=== PATIENT | female | born 1940 | race Caucasian/White ===

== ENCOUNTER 2022-08-01 13:43 | Outpatient (REF) | payer OTHER, SELFPAY ==
[2022-08-01 15:18] LABS: Bilirubin Negative (Negative); Blood Negative (Negative); Clarity Sl Cloudy (Clear); Glucose Negative (Negative); Ketones Negative (Negative); Leukocyte Esterase Trace (Negative); Nitrite Negative (Negative); Specific Gravity 1.015 (1.005-1.025); Urobilinogen 0.2 EU/dL (Up TO 0.2); pH 6.5 (5-8)
[2022-08-01 15:26] LABS: Bacteria Few HPF (Negative); C & S Indicated? No; Crystals Few Amorphous HPF (Negative); Epithelial Cells Rare HPF (Negative); Mucus Trace (Negative); Other Cells Rare Renal (Negative); RBC Negative HPF (0-2)
== END 2022-08-01 13:44 | disposition home or self-care (01) ==
LOC: LBN 13:43
PROVIDERS: PCP Family Medicine; Visit Provider Nurse Practitioner Family
DX: R30.9 Painful micturition, unspecified (principal)
CPT/HCPCS: 81003; 81015

== ENCOUNTER 2022-10-27 14:07 | Outpatient (REF) | payer OTHER, SELFPAY ==
[2022-10-27 14:34] LABS: Abs Immature Grans 0.02 10^3/uL (0.0-0.06); Absolute Basophil Count 0.03 10^3/uL (0.0-0.2); Absolute Eosinophil Count 0.25 10^3/uL (0.0-0.7); Absolute Lymphocyte Count 1.18 10^3/uL (1.2-3.4); Absolute Monocyte Count 0.61 10^3/uL (0.1-0.8); Absolute Neutrophil Count 4.81 10^3/uL (1.2-6.7); Basophils % 0.4; Eosinophils % 3.6; HCT 37.8 % (36.0-46.0); HGB 12.2 g/dL (11.2-15.7); Immature Grans % 0.3; Lymphocytes % 17.1; MCH 31.9 pg (27.0-33.0); MCHC 32.3 % (32.0-36.0); MCV 99 fL (80-95); MPV 9.9 fL (8.0-11.0); Monocytes % 8.8; Neutrophils % 69.8; Platelet Count 260 10^3/uL (130-400); RBC 3.82 10^6/uL (3.93-5.22); RDW-SD 47.5 fL
[2022-10-27 14:37] LABS: ESR 13 mm/hr (0-30)
[2022-10-27 14:48] LABS: ALT 18 U/L (14-59); AST 17 U/L (15-37); Albumin 3.9 g/dL (3.4-5.0); Alkaline Phosphatase 98 U/L (46-116); Anion Gap 9.4 mmol/L (3-11); BUN 19 mg/dL (7-18); Bilirubin, Total 0.3 mg/dL (0.2-1.0); CO2 27.6 mmol/L (21.0-32.0); CREATININE 0.9 mg/dL (0.55-1.02); Calcium 8.4 mg/dL (8.5-10.1); Chloride 104 mmol/L (98-107); Estimated GFR 63.43 (mL/min/1.73m2); Glucose 102 mg/dL (74-106); Potassium 4.5 mmol/L (3.5-5.1); Sodium 141 mmol/L (136-145); Total Protein 7.3 g/dL (6.4-8.2)
[2022-10-27 16:23] LABS: C-Reactive Protein 0.06 mg/dL (0.0-0.3); Creatine Kinase 89 U/L (26-192)
== END 2022-10-27 14:08 | disposition home or self-care (01) ==
LOC: LBN 14:07
PROVIDERS: PCP Family Medicine; Visit Provider Family Medicine
DX: I48.0 Paroxysmal atrial fibrillation (principal); M62.81 Muscle weakness (generalized); R21 Rash and other nonspecific skin eruption; M79.605 Pain in left leg
CPT/HCPCS: 80053; 82550; 85652; 85025; 86140

== ENCOUNTER 2022-11-04 16:31 | Outpatient (REF) | payer OTHER, SELFPAY ==
[2022-11-04 16:49] LABS: Bilirubin Negative (Negative); Blood Trace-intact (Negative); Clarity Clear (Clear); Glucose Negative (Negative); Ketones Negative (Negative); Leukocyte Esterase Trace (Negative); Nitrite Negative (Negative); Urobilinogen 0.2 EU/dL (Up TO 0.2)
[2022-11-04 16:55] LABS: Bacteria Rare HPF (Negative); C & S Indicated? C&S Done As Ordered; Casts Negative LPF (Negative); Crystals Negative HPF (Negative); Epithelial Cells Few HPF (Negative); Mucus Negative (Negative); RBC 0-2 HPF (0-2); WBC 0-2 HPF (0-5)
== END 2022-11-04 16:32 | disposition home or self-care (01) ==
LOC: LBN 16:31
PROVIDERS: PCP Family Medicine; Visit Provider Family Medicine
DX: N39.0 Urinary tract infection, site not specified (principal)
CPT/HCPCS: 81003; 81015; 87086

== ENCOUNTER 2023-01-12 19:48 | Outpatient (REF) | payer OTHER, SELFPAY ==
[2023-01-12 20:28] LABS: Bilirubin Negative (Negative); Blood Trace-intact (Negative); Clarity Clear (Clear); Glucose Negative (Negative); Ketones Negative (Negative); Leukocyte Esterase Small (Negative); Nitrite Negative (Negative); Specific Gravity 1.025 (1.005-1.025); Urobilinogen 0.2 mg/dL (Up to 0.2)
[2023-01-12 20:42] LABS: Bacteria Rare HPF (Negative); C & S Indicated? Yes; Crystals Negative HPF (Negative); Epithelial Cells Few HPF (Negative); Mucus Moderate (Negative)
== END 2023-01-12 19:49 | disposition home or self-care (01) ==
LOC: LBN 19:48
PROVIDERS: PCP Family Medicine; Visit Provider Family Medicine
DX: R30.0 Dysuria (principal); R82.998 Other abnormal findings in urine
CPT/HCPCS: 81003; 81015; 87086

== ENCOUNTER 2023-11-20 15:53 | Outpatient (REF) | payer OTHER, SELFPAY ==
[2023-11-20 14:20] LABS: Abs Immature Grans 0.02 10^3/uL (0.0-0.06); Absolute Basophil Count 0.02 10^3/uL (0.0-0.2); Absolute Eosinophil Count 0.31 10^3/uL (0.0-0.7); Absolute Monocyte Count 0.62 10^3/uL (0.1-0.8); Absolute Neutrophil Count 4.07 10^3/uL (1.2-6.7); Basophils % 0.3; Eosinophils % 5.2; HCT 34.5 % (36.0-46.0); Immature Grans % 0.3; Lymphocytes % 15.2; MCH 31.4 pg (27.0-33.0); MCHC 31.9 % (32.0-36.0); MCV 99 fL (80-95); MPV 9.5 fL (8.0-11.0); Monocytes % 10.4; Neutrophils % 68.6; Platelet Count 248 10^3/uL (130-400); RDW 13.6 % (11.7-14.6); RDW-SD 49.7 fL; WBC 5.94 10^3/uL (4.4-10.8)
[2023-11-20 14:43] LABS: ALT 12 U/L (14-59); AST 13 U/L (15-37); Albumin 3.6 g/dL (3.4-5.0); Alkaline Phosphatase 86 U/L (46-116); Anion Gap 7.8 mmol/L (3-11); BUN 24 mg/dL (7-18); Bilirubin, Total 0.4 mg/dL (0.2-1.0); CO2 24.2 mmol/L (21.0-32.0); CREATININE 1.3 mg/dL (0.55-1.02); Calcium 8.5 mg/dL (8.5-10.1); Chloride 109 mmol/L (98-107); Estimated GFR 40.55 (mL/min/1.73m2); Glucose 129 mg/dL (74-106); Potassium 4.3 mmol/L (3.5-5.1); Sodium 141 mmol/L (136-145); Total Protein 6.9 g/dL (6.4-8.2)
== END 2023-11-20 15:54 | disposition home or self-care (01) ==
LOC: LBN 15:53
PROVIDERS: PCP Family Medicine; Visit Provider Family Medicine
DX: E78.5 Hyperlipidemia, unspecified (principal)
CPT/HCPCS: 80053; 85025

== ENCOUNTER 2024-05-12 17:35 | Outpatient (REF) | payer OTHER, MEDICAID, SELFPAY ==
[2024-05-12 18:54] LABS: Bilirubin Large (Negative); Blood Large (Negative); Clarity Turbid (Clear); Glucose Negative (Negative); Ketones 15 mg/dL (Negative); Leukocyte Esterase Large (Negative); Nitrite Positive (Negative); pH 5.5 (5-8)
[2024-05-12 19:00] LABS: C & S Indicated? Yes; RBC >50 HPF (0-2)
== END 2024-05-12 17:36 | disposition home or self-care (01) ==
LOC: LBN 17:35
PROVIDERS: PCP Family Medicine; Visit Provider Family Medicine
DX: N39.0 Urinary tract infection, site not specified (principal)
CPT/HCPCS: 87077; 81003; 81015; 87086; 87186

== ENCOUNTER 2024-06-05 21:19 | Outpatient (REF) | payer OTHER, MEDICAID, SELFPAY ==
[2024-06-05 19:58] LABS: Bilirubin Negative (Negative); Blood Large (Negative); Clarity Cloudy (Clear); Glucose Negative (Negative); Ketones 15 mg/dL (Negative); Leukocyte Esterase Negative (Negative); Nitrite Negative (Negative); Specific Gravity 1.025 (1.005-1.025); Urobilinogen 0.2 mg/dL (Up to 0.2); pH 5.5 (5-8)
[2024-06-05 20:02] LABS: Bacteria Few HPF (Negative); C & S Indicated? C&S Done As Ordered; Casts 0-2 Hyaline LPF (Negative); Crystals Negative HPF (Negative); Epithelial Cells Few HPF (Negative); Mucus Trace (Negative); RBC >50 HPF (0-2)
== END 2024-06-05 21:20 | disposition home or self-care (01) ==
LOC: LBN 21:19
PROVIDERS: PCP Family Medicine; Visit Provider Family Medicine
DX: N39.0 Urinary tract infection, site not specified (principal); Z87.440 Personal history of urinary (tract) infections
CPT/HCPCS: 87077; 81003; 81015; 87086

== ENCOUNTER 2024-06-13 18:46 | Outpatient (REF) | payer OTHER, MEDICAID, SELFPAY ==
[2024-06-13 19:14] LABS: HCT 31.5 % (36.0-46.0); MCH 32.6 pg (27.0-33.0); MCHC 31.7 % (32.0-36.0); MCV 103 fL (80-95); MPV 10.1 fL (8.0-11.0); Platelet Count 242 10^3/uL (130-400); RBC 3.07 10^6/uL (3.93-5.22); RDW 12.8 % (11.7-14.6); RDW-SD 47.6 fL; WBC 5.95 10^3/uL (4.4-10.8)
[2024-06-13 19:39] LABS: Anion Gap 7.5 mmol/L (3-11); BUN 27 mg/dL (7-18); CO2 24.5 mmol/L (21.0-32.0); CREATININE 1.7 mg/dL (0.55-1.02); Calcium 8.1 mg/dL (8.5-10.1); Chloride 108 mmol/L (98-107); Estimated GFR 29.39 (mL/min/1.73m2); Glucose 125 mg/dL (74-106); Potassium 4.3 mmol/L (3.5-5.1); Sodium 140 mmol/L (136-145); TSH 4.55 uIU/Ml (0.36-3.74)
== END 2024-06-13 18:47 | disposition home or self-care (01) ==
LOC: LBN 18:46
PROVIDERS: PCP Family Medicine; Visit Provider Family Medicine
DX: R69 Illness, unspecified (principal)
CPT/HCPCS: 80048; 85027; 84443

== ENCOUNTER 2024-07-05 21:16 | Outpatient (REF) | payer OTHER, MEDICAID, SELFPAY ==
[2024-07-05 19:36] LABS: Bilirubin Small (Negative); Blood Large (Negative); Clarity Turbid (Clear); Glucose Negative (Negative); Ketones 15 mg/dL (Negative); Leukocyte Esterase Negative (Negative); Nitrite Positive (Negative); Specific Gravity >= 1.030 (1.005-1.025); Urobilinogen 0.2 mg/dL (Up to 0.2); pH 5.5 (5-8)
[2024-07-05 19:48] LABS: C & S Indicated? C&S Done As Ordered; RBC >50 HPF (0-2)
== END 2024-07-05 21:17 | disposition home or self-care (01) ==
LOC: LBN 21:16
PROVIDERS: PCP Family Medicine; Visit Provider Family Medicine
DX: R35.0 Frequency of micturition (principal)
CPT/HCPCS: 87077; 81003; 81015; 87086

== ENCOUNTER 2024-07-24 18:37 | Outpatient (REF) | payer OTHER, MEDICAID, SELFPAY ==
[2024-07-24 17:23] LABS: HCT 35.2 % (36.0-46.0); HGB 10.7 g/dL (11.2-15.7); MCH 31.1 pg (27.0-33.0); MCHC 30.4 % (32.0-36.0); MCV 102 fL (80-95); MPV 10.2 fL (8.0-11.0); Platelet Count 264 10^3/uL (130-400); RBC 3.44 10^6/uL (3.93-5.22); RDW 13.3 % (11.7-14.6); RDW-SD 51.1 fL; WBC 7.19 10^3/uL (4.4-10.8)
[2024-07-24 17:46] LABS: Anion Gap 9.4 mmol/L (3-11); BUN 32 mg/dL (7-18); CO2 25.6 mmol/L (21.0-32.0); CREATININE 1.5 mg/dL (0.55-1.02); Calcium 8.6 mg/dL (8.5-10.1); Chloride 108 mmol/L (98-107); Estimated GFR 34.15 (mL/min/1.73m2); Glucose 135 mg/dL (74-106); Sodium 143 mmol/L (136-145); TSH 4.06 uIU/Ml (0.36-3.74)
== END 2024-07-24 18:38 | disposition home or self-care (01) ==
LOC: LBN 18:37
PROVIDERS: PCP Family Medicine; Visit Provider Family Medicine
DX: R68.89 Other general symptoms and signs (principal)
CPT/HCPCS: 80048; 85027; 84443

== ENCOUNTER 2024-09-06 14:20 | Outpatient (REF) | payer OTHER, MEDICAID, SELFPAY ==
[2024-09-06 15:45] LABS: Abs Immature Grans 0.02 10^3/uL (0.0-0.06); Absolute Basophil Count 0.01 10^3/uL (0.0-0.2); Absolute Neutrophil Count 3.67 10^3/uL (1.2-6.7); Basophils % 0.2 %; Eosinophils % 3.8 %; HCT 33.9 % (36.0-46.0); HGB 10.5 g/dL (11.2-15.7); Immature Grans % 0.4 %; Lymphocytes % 13.5 %; MCH 31.6 pg (27.0-33.0); MCV 102 fL (80-95); MPV 10.1 fL (8.0-11.0); Monocytes % 11.5 %; Neutrophils % 70.6 %; Platelet Count 253 10^3/uL (130-400); RBC 3.32 10^6/uL (3.93-5.22); RDW 13.3 % (11.7-14.6); RDW-SD 49.8 fL
[2024-09-06 16:23] LABS: Anion Gap 8.5 mmol/L (3-11); BUN 37 mg/dL (7-18); CO2 23.5 mmol/L (21.0-32.0); CREATININE 1.5 mg/dL (0.55-1.02); Calcium 8.9 mg/dL (8.5-10.1); Chloride 113 mmol/L (98-107); Estimated GFR 34.15 (mL/min/1.73m2); Ferritin 36 ng/mL (8-252); Folate 17.7 ng/mL (8.6-20.0); Glucose 75 mg/dL (74-106); Potassium 5.7 mmol/L (3.5-5.1); Sodium 145 mmol/L (136-145); Vitamin B12 182 pg/mL (193-986)
[2024-09-06 16:54] LABS: Iron 36 ug/dL (50-170); Total Iron Binding Capacity 260 ug/dL (250-450); Transferrin Sat 14 % (15-50)
== END 2024-09-06 14:21 | disposition home or self-care (01) ==
LOC: LBN 14:20
PROVIDERS: PCP Family Medicine; Visit Provider Family Medicine
DX: I48.0 Paroxysmal atrial fibrillation (principal)
CPT/HCPCS: 80048; 82607; 82728; 82746; 83540; 83550; 85025

== ENCOUNTER 2024-10-17 09:57 | Observation (INO) | payer OTHER, MEDICAID, SELFPAY ==
[2024-10-17] VITALS (63 sets, daily range): BP systolic 74–158; BP diastolic 38–129; PULSE 60–112; RESP 10–29; TEMP 35.9–37.5; O2SAT 86–100
--- NOTE | 2024-10-17 10:00 | RT.EKG_ITS ---
APPROVED REPORT Exam: Resting ECG Reason for Exam: Fast Heart Rate Patient Location: E HR:95 bpm ECG Measurements Heart Rate 95 AXIS RI 186 P 74 QRSd 93 QRS -68 QT 333 T 92 QTc 419 Conclusion Sinus rhythm...normal P axis, V-rate 60- 99 Left anterior fascicular block...axis(240,-40), init forces inf
--- NOTE | 2024-10-17 10:45 | DI.RAD_ITS ---
Exam(s) XR CHEST 2V PA LATERAL EXAM: XR CHEST 2V PA LATERAL CLINICAL HISTORY: ams TECHNIQUE: 2D digital imaging was performed. Two views. COMPARISON: No exams were available for comparison FINDINGS: Exam is limited by monitoring leads coiled over the chest. HEART: Normal size. Aorta: Not dilated. Mildly tortuous. PULMONARY VASCULATURE: Normal. MEDIASTINUM: Unremarkable. LUNGS: Clear. PLEURAL SPACE: No pleural effusion or pneumothorax. BONE:Unremarkable for age. SOFT TISSUES: Unremarkable. IMPRESSION: No acute abnormality. DATA REPOSITORY: RADIATION DOSE DELIVERED:
[2024-10-17] MEDS: Normal Saline 500 ML IV ×3 (11:19→15:18)
[2024-10-17 11:25] LABS: Absolute Basophil Count 0.02 10^3/uL (0.0-0.2); Absolute Eosinophil Count 0.02 10^3/uL (0.0-0.7); Absolute Lymphocyte Count 0.66 10^3/uL (1.2-3.4); Absolute Monocyte Count 0.92 10^3/uL (0.1-0.8); Absolute Neutrophil Count 10.54 10^3/uL (1.2-6.7); Basophils % 0.2 %; Eosinophils % 0.2 %; HCT 41.7 % (36.0-46.0); HGB 13.4 g/dL (11.2-15.7); Immature Grans % 0.8 %; Lymphocytes % 5.4 %; MCH 30.9 pg (27.0-33.0); MCHC 32.1 % (32.0-36.0); MCV 96 fL (80-95); MPV 9.5 fL (8.0-11.0); Monocytes % 7.5 %; Neutrophils % 85.9 %; Platelet Count 418 10^3/uL (130-400); RBC 4.34 10^6/uL (3.93-5.22); RDW 13.1 % (11.7-14.6); RDW-SD 46.5 fL; WBC 12.27 10^3/uL (4.4-10.8)
[2024-10-17 11:35] LABS: Lactate 2.1 mmol/L (0.6-1.4)
[2024-10-17 11:51] LABS: ALT 17 U/L (14-59); AST 22 U/L (15-37); Alkaline Phosphatase 105 U/L (46-116); Anion Gap 17.4 mmol/L (3-11); CO2 14.6 mmol/L (21.0-32.0); Calcium 9.1 mg/dL (8.5-10.1); Chloride 101 mmol/L (98-107); Estimated GFR 14.77 (mL/min/1.73m2); Glucose 190 mg/dL (74-106); Magnesium 2.3 mg/dL (1.8-2.4); Potassium 3.8 mmol/L (3.5-5.1); Sodium 133 mmol/L (136-145); TSH (W/Ref FT4) 4.23 uIU/mL (0.36-3.74); Total Protein 8.7 g/dL (6.4-8.2)
--- NOTE | 2024-10-17 11:51 | DI.CT_ITS ---
Exam(s) CT HEAD WO EXAM: CT HEAD WO CLINICAL HISTORY: ams. TECHNIQUE: Imaging Protocol: Axial computed tomography images with coronal and sagittal reformatted images were created and reviewed COMPARISON: No exams were available for comparison FINDINGS: Ventricles and Extra axial spaces: Normal in size and morphology for the patient's age. Hemorrhage: None. Cerebral parenchyma: No evidence of acute infarct or mass. Moderate atrophy. Mild white matter [place] nges consistent with microvascular disease. Midline shift: None. Brainstem/Cerebellum: Normal. Calvarium: Normal. Visualized Paranasal sinuses:Clear. Mastoids: Clear. Soft Tissues: Unremarkable. ORBITS: Unremarkable. PITUITARY: Not enlarged. IMPRESSION: No acute intracranial process. RADIATION DOSE DELIVERED: 1,001.57mGy.cm Total DLP DATA REPOSITORY: All CT scans at this facility are submitted to the National Radiology Data Registry (NRDR) Dose Index Registry (DIR) with the [employer] (A[employer]). RADIATION OPTIMIZATION: All CT scans at this facility use at least one of these dose optimization te chniques: automated exposure control; mA and/or kV adjustment per patient size (includes targeted exa ms where dose is matched to clinical indication); or iterative reconstruction.
[2024-10-17 11:53] LABS: BUN 95 mg/dL (7-18); Troponin I 135 ng/L (<or=51)
[2024-10-17 12:13] LABS: COVID-19 PCR Negative (Negative); Influenza A PCR Negative (Negative); Influenza B PCR Negative (Negative); RSV PCR Negative (Negative)
[2024-10-17 12:14] LABS: Source Nasopharynx
[2024-10-17 12:16] LABS: Procalcitonin 1.31 ng/mL
[2024-10-17 12:18] LABS: Creatine Kinase 195 U/L (26-192)
[2024-10-17 12:50] LABS: Troponin I 128 ng/L (<or=51)
[2024-10-17] MEDS: ACETAMINOPHEN 500 MG/50 ML BAG 200 MG IVPB (13:10)
[2024-10-17] MEDS: cefTRIAXone 2 GM/50 ML BAG IVPB (13:10)
[2024-10-17 14:30] LABS: Lactate 1.3 mmol/L (0.6-1.4)
[2024-10-17 14:33] LABS: Bilirubin Negative (Negative); Blood Large (Negative); Clarity Turbid (Clear); Glucose Negative (Negative); Ketones Negative (Negative); Leukocyte Esterase Large (Negative); Nitrite Negative (Negative); Specific Gravity 1.025 (1.005-1.025); Urobilinogen 0.2 mg/dL (Up to 0.2); pH 5.5 (5-8)
[2024-10-17 14:39] LABS: C & S Indicated? Yes; WBC >50 HPF (0-5)
[2024-10-17 14:46] LABS: Anion Gap 15.8 mmol/L (3-11); CO2 17.2 mmol/L (21.0-32.0); CREATININE 2.8 mg/dL (0.55-1.02); Chloride 103 mmol/L (98-107); Estimated GFR 16.05 (mL/min/1.73m2); Glucose 142 mg/dL (74-106); Potassium 3.8 mmol/L (3.5-5.1); Sodium 136 mmol/L (136-145)
[2024-10-17 14:47] LABS: BUN 91 mg/dL (7-18)
--- NOTE | 2024-10-17 15:02 | W.PM.HP.N ---
Date of service: 10/17/24 Time of Service: 15:03 Assessment and Plan Assessment and plan (1) Severe sepsis: Status: Acute Assessment and plan: Sepsis criteria met with WBC > 12, tachycardia 91-93 on arrival & probable urinary source Severe sepsis d/t lactate > 2 and hypotension responding to fluid resuscitation; also has Cr >2 Treating cause as per 2 considering fluid bolus as per weight pending confirmation of CHF history - patient responded to 1 liter of crystalloid in the ED and now normotensive (2) UTI (urinary tract infection): Status: Acute Assessment and plan: As per UA results Ceftriaxone IV started in ED Continue ceftriaxone IV while awaiting urine Cx results (3) Acute kidney injury superimposed on CKD: Status: Acute Assessment and plan: Cr 3 with previous 1.5 IVF bolus in ED now on Lr at 80 cc/hr BMP in AM (4) Atrial fibrillation: Status: Chronic Assessment and plan: On metoprolol succinate 12.5 mg PO daily and eliquis at home Will hold beta angely XR for now Consider resumption in AM (5) Contraindication to deep vein thrombosis (DVT) prophylaxis: Status: Acute Assessment and plan: Patient is on apixaban for atrial fibrillation (6) Discharge planning issues: Status: Acute Assessment and plan: Return to SNF when medically cleared Discussed with Dr. Pinzon History of Present Illness History of Present Illness Chief Complaint: Decreased LOC, confusion, unresponsiveness Narrative: This 84-year-old female patient with a past medical history of dementia, coronary artery disease without angina, paroxysmal atrial fibrillation on metoprolol and Eliquis, presented to the ED at [facility] from the [facility] via EMS status post increased confusion over the past 3 to 4 days and the brief episode of unresponsiveness this morning. History reviewed with nurse, Macarena, from the SNF facility and is negative for CHF, hypertension, MA, urinary retention. Report received of ongoing complaints of dysuria, burning on urination. On presentation to the ED the patient was hypotensive with a blood pressure of 74/54, tachycardic with a heart rate of 93, afebrile, initial saturation oxygen was 96% on room air. The workup in the ED was significant for Leukocytosis at 12.27, thrombocytosis at 418, troponin #1 at 135, VBG lactate at 2.1, sodium at 133, BUN and creatinine 95 and 3.0 with previous baseline at 37 and 1.5. Urinalysis was positive for leuk esterase, blood, WBC over 50. In the ED the patient received an IV crystalloid bolus with adequate blood pressure response repeated lactate was 1.3, improvement noted in BUN and creatinine levels . EKG showed sinus rhythm heart rate 95 without sign of ischemia or acute injury with troponin #2 downtrending at 128. The ED provider reported a small the hospitalist was consulted and patient admitted to the medical surgical floor for severe sepsis due to UTI, GABRIEL superimposed on CKD and dehydration. When seen, patient denied headache, change in vision, chest pain, abdominal pain, nausea, vomiting or diarrhea. Patient also denies dysuria. Reported to be a DNR as per ED provider with further discussion regarding depth of intervention with son. Review of Systems All systems reviewed & are unremarkable except as noted in HPI and below PFSH All Active Problems (Updated 10/17/24 @ 15:30 by JOSE FRANCISCO Giron) Discharge planning issues (Acute) Contraindication to deep vein thrombosis (DVT) prophylaxis (Acute) Atrial fibrillation (Chronic) Acute kidney injury superimposed on CKD (Acute) Severe sepsis (Acute) UTI (urinary tract infection) (Acute) Social History Smoking/Tobacco Use Status: Unknown Smoking risk assessment performed?: Yes Substance use type: unknown Housing: assisted living facility Meds Allergies and Home Medications Allergies Allergy/AdvReac Type Severity Reaction Status Date / Time ampicillin Allergy Unknown Unknown Unverified 10/17/24 10:30 aspirin Allergy Unknown Unknown Unverified 10/17/24 10:30 codeine Allergy Unknown Unknown Unverified 10/17/24 10:30 hydrocodone Allergy Unknown Unknown Unverified 10/17/24 10:30 Penicillins Allergy Unknown Unknown Unverified 10/17/24 10:30 Sulfa (Sulfonamide Allergy Unknown Unknown Unverified 10/17/24 10:30 Antibiotics) Home Medications ?Medication ?Instructions ?Recorded ?Confirmed ?Type acetaminophen 325 mg capsule 650 mg PO Q8H PRN 10/17/24 10/17/24 History albuterol sulfate 90 mcg/actuation 2 inh inhalation Q4H PRN 10/17/24 10/17/24 History aerosol inhaler (Ventolin HFA) apixaban 2.5 mg tablet (Eliquis) 2.5 mg PO BID 10/17/24 10/17/24 History bisacodyl 10 mg rectal suppository 10 mg IN DAILY PRN 10/17/24 10/17/24 History (Dulcolax (bisacodyl)) buspirone 5 mg tablet 5 mg PO BID 10/17/24 10/17/24 History cyanocobalamin (vitamin B-12) 1,000 mcg PO DAILY 10/17/24 10/17/24 History 1,000 mcg capsule diclofenac sodium 1 % topical gel 2 g topical BID PRN 10/17/24 10/17/24 History (Voltaren Arthritis Pain) docusate sodium 100 mg capsule 100 mg PO BID PRN 10/17/24 10/17/24 History lidocaine 5 % topical patch 1 patch topical DAILY 10/17/24 10/17/24 History lorazepam 0.5 mg tablet 0.5 mg PO HS PRN 10/17/24 10/17/24 History magnesium hydroxide 400 mg/5 mL 30 ml PO QHS PRN 10/17/24 10/17/24 History oral suspension (Milk of Fyreball) metoprolol succinate 25 mg 12.5 mg PO DAILY 10/17/24 10/17/24 History tablet,extended release 24 hr polyethylene glycol 3350 17 17 g PO DAILY PRN 10/17/24 10/17/24 History gram/dose oral powder (Miralax) sertraline 50 mg tablet 50 mg PO DAILY 10/17/24 10/17/24 History sodium phosphates 19 gram-7 118 ml IN DAILY PRN 10/17/24 10/17/24 History gram/118 mL enema (Enema) Exam Narrative Exam Narrative: Constitutional Frail elderly female lying in bed, comfortable without acute distress HENMT: Facial structures with normal appearance except for small excoriation on tip of nose Eyes: Well aligned Neuro:alert and oriented to self. Knows that she is in [place]. No neurological focal deficit Resp: Unlabored breathing, clear lung bilaterally with diminished bases Cardio: regular rhythm, S1, S2, no murmur, positive pulses to all 4 extremities : Negative Costovertebral angle tenderness, no bladder distension Back/spine/Pelvis: No back tenderness, normal alignment Integumentary: No skin lesions or rash Extremities: strength 5/5 to upper extremities; 3/5 to lower extremities healing scratch to right lower extremity Psych: RASS 0, congruent mood and normal affect. Results Labs 10/17/24 11:15 10/17/24 14:25 Labs: Laboratory Results - last 24 hr 10/17/24 10/17/24 10/17/24 11:11 11:15 11:25 WBC 12.27 H RBC 4.34 Hgb 13.4 Hct 41.7 MCV 96 H MCH 30.9 MCHC 32.1 RDW 13.1 Plt Count 418 H MPV 9.5 Immature Gran % 0.8 Neutrophils % 85.9 Lymphocytes % 5.4 Monocytes % 7.5 Eosinophils % 0.2 Basophils % 0.2 Nucleated RBC % 0.0 Absolute Neutrophils 10.54 H Absolute Lymphocytes 0.66 L Absolute Monocytes 0.92 H Absolute Eosinophils 0.02 Absolute Basophils 0.02 VBG Lactate 2.1 H Sodium 133 L Potassium 3.8 Chloride 101 Carbon Dioxide 14.6 L Anion Gap 17.4 H BUN 95 H* Creatinine 3.0 H Est GFR (CKD-EPI 2020) 14.77 Glucose 190 H Calcium 9.1 Magnesium 2.3 Total Bilirubin 0.30 AST 22 ALT 17 Alkaline Phosphatase 105 Creatine Kinase 195 H Troponin I 135 H* Total Protein 8.7 H Albumin 3.0 L Procalcitonin 1.31 TSH 4.23 H Free T4 0.70 L Urine Color Urine Clarity Urine pH Ur Specific [place] Urine Protein Urine Ketones Urine Blood Urine Nitrite Urine Bilirubin Urine Urobilinogen Ur Leukocyte Esterase Urine RBC Urine WBC Ur Epithelial Cells Urine Crystals Urine Bacteria Urine Mucus Ur Culture Indicated? Urine Glucose COVID-19 Source Nasopharynx SARS-CoV-2 (PCR) Negative Influenza Type A (PCR) Negative Influenza Type B (PCR) Negative RSV (PCR) Negative 10/17/24 10/17/24 10/17/24 12:24 14:16 14:25 WBC RBC Hgb Hct MCV MCH MCHC RDW Plt Count MPV Immature Gran % Neutrophils % Lymphocytes % Monocytes % Eosinophils % Basophils % Nucleated RBC % Absolute Neutrophils Absolute Lymphocytes Absolute Monocytes Absolute Eosinophils Absolute Basophils VBG Lactate 1.3 Sodium 136 Potassium 3.8 Chloride 103 Carbon Dioxide 17.2 L Anion Gap 15.8 H BUN 91 H* Creatinine 2.8 H Est GFR (CKD-EPI 2020) 16.05 Glucose 142 H Calcium 8.0 L Magnesium Total Bilirubin AST ALT Alkaline Phosphatase Creatine Kinase Troponin I 128 H* Total Protein Albumin Procalcitonin TSH Free T4 Urine Color Yellow Urine Clarity Turbid Urine pH 5.5 Ur Specific [place] 1.025 Urine Protein >=300 H Urine Ketones Negative Urine Blood Large H Urine Nitrite Negative Urine Bilirubin Negative Urine Urobilinogen 0.2 Ur Leukocyte Esterase Large H Urine RBC Not Applicable Urine WBC >50 H Ur Epithelial Cells Not Applicable Urine Crystals Not Applicable Urine Bacteria Not Applicable Urine Mucus Not Applicable Ur Culture Indicated? Yes Urine Glucose Negative COVID-19 Source SARS-CoV-2 (PCR) Influenza Type A (PCR) Influenza Type B (PCR) RSV (PCR) Last Vital Signs Temp 36.1 C L 10/17/24 11:20 Pulse 72 10/17/24 14:01 Resp 10 L 10/17/24 14:20 BP 123/91 H 10/17/24 14:01 Pulse Ox 86 L 10/17/24 10:46 Time Spent Time spent with Patient: >75 minutes Time was spent: preparing to see the patient(eg.review tests), obtaining and/or reviewing separately otained hiistory, ordering medications,tests, procedures, referring, communicating with other health youth care professional, indepentently interpreting results, counseling the patient and care coordination
--- NOTE | 2024-10-17 15:16 | W.ED.GENAD ---
Discharge Plan Disposition Patient Disposition: Admit to [facility] Condition: Serious Discharge Details Chief Complaint: GenMedical Clinical Impression: Acute kidney injury superimposed on CKD, Severe sepsis, UTI (urinary tract infection) Primary Care Provider: August Neri ED Provider: Navya Mary Home Meds and New Rx's Prescriptions: No Action Eliquis 2.5 mg tablet 2.5 mg PO BID lorazepam 0.5 mg tablet 0.5 mg PO HS PRN metoprolol succinate 25 mg tablet extended release 24 hr 12.5 mg PO DAILY sertraline 50 mg tablet 50 mg PO DAILY buspirone 5 mg tablet 5 mg PO BID acetaminophen 325 mg capsule 650 mg PO Q8H PRN cyanocobalamin (vitamin B-12) 1,000 mcg capsule 1,000 mcg PO DAILY docusate sodium 100 mg capsule 100 mg PO BID PRN bisacodyl [Dulcolax (bisacodyl)] 10 mg suppository 10 mg MT DAILY PRN Enema 19-7 gram/118 mL enema 118 ml MT DAILY PRN lidocaine 5 % adhesive patch,medicated 1 patch topical DAILY Rx Instructions: leave on most painful area for up to 12 hrs magnesium hydroxide [Milk of Magnesia] 400 mg/5 mL suspension 30 ml PO QHS PRN polyethylene glycol 3350 [Miralax] 17 gram/dose powder 17 g PO DAILY PRN albuterol sulfate [Ventolin HFA] 90 mcg/actuation HFA aerosol inhaler 2 inh inhalation Q4H PRN diclofenac sodium [Voltaren Arthritis Pain] 1 % gel 2 g topical BID PRN Rx Instructions: apply to posterior neck HPI General Date/Time Provider Initiated Documentation: 10/17/24 10:01. HPI Narrative: This 84-year-old female with history of dementia presents with 3 to 4 days of worsening confusion and a very short period of reported unresponsiveness at the rehabilitation center. Upon EMS arrival patient was alert and oriented active per EMS. Patient cannot give me any information. Patient denies any additional complaints at this time. She does tell me she wants to leave and is initially declining any evaluation. I do not see any significant evidence of trauma or seizure. Patient does have an excoriation on her nose, she cannot tell me where this came from. There is no tongue injury and patient is not incontinent. She has no abdominal tenderness and is alert and oriented to her baseline reportedly. Related Data Home Medications ?Medication ?Instructions ?Recorded ?Confirmed acetaminophen 325 mg capsule 650 mg PO Q8H PRN 10/17/24 10/17/24 albuterol sulfate 90 mcg/actuation 2 inh inhalation Q4H PRN 10/17/24 10/17/24 aerosol inhaler (Ventolin HFA) apixaban 2.5 mg tablet (Eliquis) 2.5 mg PO BID 10/17/24 10/17/24 bisacodyl 10 mg rectal suppository 10 mg MT DAILY PRN 10/17/24 10/17/24 (Dulcolax (bisacodyl)) buspirone 5 mg tablet 5 mg PO BID 10/17/24 10/17/24 cyanocobalamin (vitamin B-12) 1,000 mcg PO DAILY 10/17/24 10/17/24 1,000 mcg capsule diclofenac sodium 1 % topical gel 2 g topical BID PRN 10/17/24 10/17/24 (Voltaren Arthritis Pain) docusate sodium 100 mg capsule 100 mg PO BID PRN 10/17/24 10/17/24 lidocaine 5 % topical patch 1 patch topical DAILY 10/17/24 10/17/24 lorazepam 0.5 mg tablet 0.5 mg PO HS PRN 10/17/24 10/17/24 magnesium hydroxide 400 mg/5 mL 30 ml PO QHS PRN 10/17/24 10/17/24 oral suspension (Milk of Magnesia) metoprolol succinate 25 mg 12.5 mg PO DAILY 10/17/24 10/17/24 tablet,extended release 24 hr polyethylene glycol 3350 17 17 g PO DAILY PRN 10/17/24 10/17/24 gram/dose oral powder (Miralax) sertraline 50 mg tablet 50 mg PO DAILY 10/17/24 10/17/24 sodium phosphates 19 gram-7 118 ml MT DAILY PRN 10/17/24 10/17/24 gram/118 mL enema (Enema) Allergies Allergy/AdvReac Type Severity Reaction Status Date / Time ampicillin Allergy Unknown Unknown Unverified 10/17/24 10:30 aspirin Allergy Unknown Unknown Unverified 10/17/24 10:30 codeine Allergy Unknown Unknown Unverified 10/17/24 10:30 hydrocodone Allergy Unknown Unknown Unverified 10/17/24 10:30 Penicillins Allergy Unknown Unknown Unverified 10/17/24 10:30 Sulfa (Sulfonamide Allergy Unknown Unknown Unverified 10/17/24 10:30 Antibiotics) General Stated Complaint: GenMedical JOHNSON: 3 Exam Narrative Exam Narrative: 84-year-old female in no acute distress, pupils equal round reactive to light and accommodation, lungs clear to auscultation bilaterally, no meningismus, oropharynx patent, dry mucous membranes, lungs clear to auscultation, cardiac rate rhythm regular, no abdominal tenderness or CVA tenderness, pallor, alert and oriented times, able to follow basic commands, ulceration noted to left lower extremity Course Vital Signs Vital signs: Vital Signs Respiratory Rate 20 10/17/24 10:00 Temperature 36.1 C L 10/17/24 11:20 Pulse 72 10/17/24 14:01 Pulse 70 10/17/24 14:20 Respiratory Rate 10 L 10/17/24 14:20 Respiratory Effort Normal 10/17/24 10:14 Respiratory Depth Normal 10/17/24 10:14 Respiratory Pattern Normal 10/17/24 10:14 Blood Pressure 123/91 H 10/17/24 14:01 Blood Pressure Mean 103 10/17/24 14:01 Pulse Oximetry 86 L 10/17/24 10:46 Oxygen Delivery Method Room Air 10/17/24 10:01 Oxygen Flow Rate 0 10/17/24 10:01 Pain Level 0 10/17/24 10:14 Lab/Test Results Lab/Test Results: 10/17/24 14:16 Urine - Reflex from Ua Urine Culture - Pending 10/17/24 12:52 Blood Blood Culture - Pending 10/17/24 11:11 Blood Blood Culture - Pending Laboratory Tests Range/Units 10/17/24 10/17/24 10/17/24 11:11 11:15 11:25 WBC (4.4-10.8) 10^3/uL 12.27 H RBC (3.93-5.22) 10^6/uL 4.34 Hgb (11.2-15.7) g/dL 13.4 Hct (36.0-46.0) % 41.7 MCV (80-95) fL 96 H MCH (27.0-33.0) pg 30.9 MCHC (32.0-36.0) % 32.1 RDW (11.7-14.6) % 13.1 Plt Count (130-400) 10^3/uL 418 H MPV (8.0-11.0) fL 9.5 Immature Gran % % 0.8 Neutrophils % % 85.9 Lymphocytes % % 5.4 Monocytes % % 7.5 Eosinophils % % 0.2 Basophils % % 0.2 Nucleated RBC % (0.0-0.3) % 0.0 Absolute Neutrophils (1.2-6.7) 10^3/uL 10.54 H Absolute Lymphocytes (1.2-3.4) 10^3/uL 0.66 L Absolute Monocytes (0.1-0.8) 10^3/uL 0.92 H Absolute Eosinophils (0.0-0.7) 10^3/uL 0.02 Absolute Basophils (0.0-0.2) 10^3/uL 0.02 VBG Lactate (0.6-1.4) mmol/L 2.1 H Sodium (136-145) mmol/L 133 L Potassium (3.5-5.1) mmol/L 3.8 Chloride (98-107) mmol/L 101 Carbon Dioxide (21.0-32.0) mmol/L 14.6 L Anion Gap (3-11) mmol/L 17.4 H BUN (7-18) mg/dL 95 H* Creatinine (0.55-1.02) mg/dL 3.0 H Est GFR (CKD-EPI 2020) (mL/min/1.73m2) 14.77 Glucose (74-106) mg/dL 190 H Calcium (8.5-10.1) mg/dL 9.1 Magnesium (1.8-2.4) mg/dL 2.3 Total Bilirubin (0.2-1.0) mg/dL 0.30 AST (15-37) U/L 22 ALT (14-59) U/L 17 Alkaline Phosphatase (46-116) U/L 105 Creatine Kinase (26-192) U/L 195 H Troponin I (<or=51) ng/L 135 H* Total Protein (6.4-8.2) g/dL 8.7 H Albumin (3.4-5.0) g/dL 3.0 L Procalcitonin ng/mL 1.31 TSH (0.36-3.74) uIU/mL 4.23 H Free T4 (0.76-1.46) ng/dL 0.70 L Urine Color (Yellow) Urine Clarity (Clear) Urine pH (5-8) Ur Specific [place] (1.005-1.025) Urine Protein (Neg-Trace) mg/dL Urine Ketones (Negative) mg/dL Urine Blood (Negative) Urine Nitrite (Negative) Urine Bilirubin (Negative) Urine Urobilinogen (Up to 0.2) mg/dL Ur Leukocyte Esterase (Negative) Urine RBC Urine WBC (0-5) HPF Ur Epithelial Cells Urine Crystals Urine Bacteria Urine Mucus Ur Culture Indicated? Urine Glucose (Negative) mg/dL COVID-19 Source Nasopharynx SARS-CoV-2 (PCR) (Negative) Negative Influenza Type A (PCR) (Negative) Negative Influenza Type B (PCR) (Negative) Negative RSV (PCR) (Negative) Negative Range/Units 10/17/24 10/17/24 10/17/24 12:24 14:16 14:25 WBC (4.4-10.8) 10^3/uL RBC (3.93-5.22) 10^6/uL Hgb (11.2-15.7) g/dL Hct (36.0-46.0) % MCV (80-95) fL MCH (27.0-33.0) pg MCHC (32.0-36.0) % RDW (11.7-14.6) % Plt Count (130-400) 10^3/uL MPV (8.0-11.0) fL Immature Gran % % Neutrophils % % Lymphocytes % % Monocytes % % Eosinophils % % Basophils % % Nucleated RBC % (0.0-0.3) % Absolute Neutrophils (1.2-6.7) 10^3/uL Absolute Lymphocytes (1.2-3.4) 10^3/uL Absolute Monocytes (0.1-0.8) 10^3/uL Absolute Eosinophils (0.0-0.7) 10^3/uL Absolute Basophils (0.0-0.2) 10^3/uL VBG Lactate (0.6-1.4) mmol/L 1.3 Sodium (136-145) mmol/L 136 Potassium (3.5-5.1) mmol/L 3.8 Chloride (98-107) mmol/L 103 Carbon Dioxide (21.0-32.0) mmol/L 17.2 L Anion Gap (3-11) mmol/L 15.8 H BUN (7-18) mg/dL 91 H* Creatinine (0.55-1.02) mg/dL 2.8 H Est GFR (CKD-EPI 2020) (mL/min/1.73m2) 16.05 Glucose (74-106) mg/dL 142 H Calcium (8.5-10.1) mg/dL 8.0 L Magnesium (1.8-2.4) mg/dL Total Bilirubin (0.2-1.0) mg/dL AST (15-37) U/L ALT (14-59) U/L Alkaline Phosphatase (46-116) U/L Creatine Kinase (26-192) U/L Troponin I (<or=51) ng/L 128 H* Total Protein (6.4-8.2) g/dL Albumin (3.4-5.0) g/dL Procalcitonin ng/mL TSH (0.36-3.74) uIU/mL Free T4 (0.76-1.46) ng/dL Urine Color (Yellow) Yellow Urine Clarity (Clear) Turbid Urine pH (5-8) 5.5 Ur Specific [place] (1.005-1.025) 1.025 Urine Protein (Neg-Trace) mg/dL >=300 H Urine Ketones (Negative) mg/dL Negative Urine Blood (Negative) Large H Urine Nitrite (Negative) Negative Urine Bilirubin (Negative) Negative Urine Urobilinogen (Up to 0.2) mg/dL 0.2 Ur Leukocyte Esterase (Negative) Large H Urine RBC Not Applicable Urine WBC (0-5) HPF >50 H Ur Epithelial Cells Not Applicable Urine Crystals Not Applicable Urine Bacteria Not Applicable Urine Mucus Not Applicable Ur Culture Indicated? Yes Urine Glucose (Negative) mg/dL Negative COVID-19 Source SARS-CoV-2 (PCR) (Negative) Influenza Type A (PCR) (Negative) Influenza Type B (PCR) (Negative) RSV (PCR) (Negative) Medical Decision Making 84-year-old female presents with report of confusion and period of unresponsiveness. Patient has been responsive throughout her encounter, initially was quite hypotensive, fluid responsive, suspect secondary to prerenal dehydration. Patient has a creatinine of 3, increased from 1.5. BUN is also elevated, I suspect patient is quite dehydrated, she received 1.5 L in the emergency department. Initially elevated elevated troponin, EKG is nonischemic per my attending interpretation and my review, patient does not endorse chest pain and his troponin is downtrending after fluids, I suspect troponin leak in the setting of stress. Anticoagulated on Eliquis. Urine with greater than 50 white blood cells, only 10 cc of urine production after 3 hours in the emergency department so patient will likely need additional fluid resuscitation. Patient meets sepsis criteria with elevated procalcitonin of 1.3, elevated lactate of 2.1, and leukocytosis at 12,000, ceftriaxone 2 g was administered. Patient did have a small run of ventricular tachycardia, 5 beats, she remained responsive with stable blood pressure during this encounter. I spoke with her son Cuate on 2 separate occasions, he lives in [place]. He does not wish significant invasive procedures, however he would like to review if there is any change in patient's status. He is aware that she is sick and has a urinary tract infection with an elevated troponin at this time. At this time I think patient requires admission for continued fluid and monitoring for GABRIEL and UTI. Case discussed with Dr. Pinzon who will admit patient to his service. Patient is to remain do DNR/DNI status. DPOA Cuate aware. Quality:[facility] Health Related Social Needs: No Data to Display Critical Care Time Critical Care Time Attestation: 35 minutes of critical care time secondary to GABRIEL requiring fluid resuscitation,'s sepsis in the presence of urinary tract infection requiring IV antibiotics, episode of ventricular tachycardia requiring continue telemetry monitoring, admission to the hospital for further evaluation and observation [facility] All Active Problems (Updated 10/17/24 @ 15:30 by JOSE FRANCISCO Giron) Discharge planning issues (Acute) Contraindication to deep vein thrombosis (DVT) prophylaxis (Acute) Atrial fibrillation (Chronic) Acute kidney injury superimposed on CKD (Acute) Severe sepsis (Acute) UTI (urinary tract infection) (Acute) Social History Smoking/Tobacco Use Status: Unknown Smoking risk assessment performed?: Yes Substance use type: unknown Housing: custodial
[2024-10-17 15:25] LABS: Troponin I 120 ng/L (<or=51)
[2024-10-17] MEDS: Lactated Ringers 1,000 ML 80 ML IV (17:24)
--- NOTE | 2024-10-17 17:55 | W.PC.ACHO ---
Registration Status: Primary Language: Preferred Language: ED Information & Data Chief Complaint GenMedical 10/17/24 15:30 Triage Note patient presented from 10/17/24 10:01 [facility] via [facility]. Health and rehab staff reported that patient appears to have had an absent seizure and was unresponsive for a short period. patient is demented at baseline. Most Recent Vital Signs Temperature 36.7 C 10/17/24 16:34 Temperature Source Temporal Artery Scan 10/17/24 16:33 Pulse 66 10/17/24 16:34 Pulse Rhythm Regular 10/17/24 16:34 Pulse 69 10/17/24 16:01 Respiratory Rate 18 10/17/24 16:34 Respiratory Effort Normal 10/17/24 16:34 Respiratory Depth Normal 10/17/24 16:34 Respiratory Pattern Normal 10/17/24 10:14 Blood Pressure 119/65 10/17/24 16:34 Blood Pressure Mean 76 10/17/24 16:01 Pulse Oximetry 100 10/17/24 16:34 Oxygen Delivery Method Room Air 10/17/24 16:34 Oxygen Flow Rate 0 10/17/24 16:34 Pain Level 0 10/17/24 16:34 Allergies ampicillin Allergy (Unknown, Unverified 10/17/24 10:30) Unknown aspirin Allergy (Unknown, Unverified 10/17/24 10:30) Unknown codeine Allergy (Unknown, Unverified 10/17/24 10:30) Unknown hydrocodone Allergy (Unknown, Unverified 10/17/24 10:30) Unknown Penicillins Allergy (Unknown, Unverified 10/17/24 10:30) Unknown Sulfa (Sulfonamide Antibiotics) Allergy (Unknown, Unverified 10/17/24 10:30) Unknown Precautions Isolation Standard precaution 10/17/24 10:14 Active Medications Generic Name Dose Route Start Last Admin Trade Name Freq PRN Reason Stop Dose Admin Ringer's Solution 1,000 mls @ 80 mls/hr 10/17/24 16:33 10/17/24 17:24 IV 80 mls/hr INFUSION ALEXADNRIA Administration IV IV Catheter Type [Left Saline Lock Antecubital] IV Catheter Gauge [Left 20 Antecubital] Diet Orders Category Date Time Status Heart Healthy Eating [DIET] Nutrition 10/17/24 Dinner Active Diagnostics 12/04/24 12/04/24 12/04/24 Range/Units 14:25 14:16 12:24 WBC (4.4-10.8) 10^3/uL RBC (3.93-5.22) 10^6/uL Hgb (11.2-15.7) g/dL Hct (36.0-46.0) % MCV (80-95) fL MCH (27.0-33.0) pg MCHC (32.0-36.0) % RDW (11.7-14.6) % Plt Count (130-400) 10^3/uL MPV (8.0-11.0) fL Immature Gran % % Neutrophils % % Lymphocytes % % Monocytes % % Eosinophils % % Basophils % % Nucleated RBC % (0.0-0.3) % Absolute Neutrophils (1.2-6.7) 10^3/uL Absolute Lymphocytes (1.2-3.4) 10^3/uL Absolute Monocytes (0.1-0.8) 10^3/uL Absolute Eosinophils (0.0-0.7) 10^3/uL Absolute Basophils (0.0-0.2) 10^3/uL VBG Lactate 1.3 (0.6-1.4) mmol/L Sodium 136 (136-145) mmol/L Potassium 3.8 (3.5-5.1) mmol/L Chloride 103 (98-107) mmol/L Carbon Dioxide 17.2 L (21.0-32.0) mmol/L Anion Gap 15.8 H (3-11) mmol/L BUN 91 H* (7-18) mg/dL Creatinine 2.8 H (0.55-1.02) mg/dL Est GFR (CKD-EPI 2020) 16.05 (mL/min/1.73m2) Glucose 142 H (74-106) mg/dL Calcium 8.0 L (8.5-10.1) mg/dL Magnesium (1.8-2.4) mg/dL Total Bilirubin (0.2-1.0) mg/dL AST (15-37) U/L ALT (14-59) U/L Alkaline Phosphatase (46-116) U/L Creatine Kinase (26-192) U/L Troponin I 120 H* 128 H* (<or=51) ng/L Total Protein (6.4-8.2) g/dL Albumin (3.4-5.0) g/dL Procalcitonin ng/mL TSH (0.36-3.74) uIU/mL Free T4 (0.76-1.46) ng/dL Urine Color Yellow (Yellow) Urine Clarity Turbid (Clear) Urine pH 5.5 (5-8) Ur Specific [place] 1.025 (1.005-1.025) Urine Protein >=300 H (Neg-Trace) mg/dL Urine Ketones Negative (Negative) mg/dL Urine Blood Large H (Negative) Urine Nitrite Negative (Negative) Urine Bilirubin Negative (Negative) Urine Urobilinogen 0.2 (Up to 0.2) mg/dL Ur Leukocyte Esterase Large H (Negative) Urine RBC Not Applicable Urine WBC >50 H (0-5) HPF Ur Epithelial Cells Not Applicable Urine Crystals Not Applicable Urine Bacteria Not Applicable Urine Mucus Not Applicable Ur Culture Indicated? Yes Urine Glucose Negative (Negative) mg/dL COVID-19 Source SARS-CoV-2 (PCR) (Negative) Influenza Type A (PCR) (Negative) Influenza Type B (PCR) (Negative) RSV (PCR) (Negative) 10/17/24 10/17/24 10/17/24 Range/Units 11:25 11:15 11:11 WBC 12.27 H (4.4-10.8) 10^3/uL RBC 4.34 (3.93-5.22) 10^6/uL Hgb 13.4 (11.2-15.7) g/dL Hct 41.7 (36.0-46.0) % MCV 96 H (80-95) fL MCH 30.9 (27.0-33.0) pg MCHC 32.1 (32.0-36.0) % RDW 13.1 (11.7-14.6) % Plt Count 418 H (130-400) 10^3/uL MPV 9.5 (8.0-11.0) fL Immature Gran % 0.8 % Neutrophils % 85.9 % Lymphocytes % 5.4 % Monocytes % 7.5 % Eosinophils % 0.2 % Basophils % 0.2 % Nucleated RBC % 0.0 (0.0-0.3) % Absolute Neutrophils 10.54 H (1.2-6.7) 10^3/uL Absolute Lymphocytes 0.66 L (1.2-3.4) 10^3/uL Absolute Monocytes 0.92 H (0.1-0.8) 10^3/uL Absolute Eosinophils 0.02 (0.0-0.7) 10^3/uL Absolute Basophils 0.02 (0.0-0.2) 10^3/uL VBG Lactate 2.1 H (0.6-1.4) mmol/L Sodium 133 L (136-145) mmol/L Potassium 3.8 (3.5-5.1) mmol/L Chloride 101 (98-107) mmol/L Carbon Dioxide 14.6 L (21.0-32.0) mmol/L Anion Gap 17.4 H (3-11) mmol/L BUN 95 H* (7-18) mg/dL Creatinine 3.0 H (0.55-1.02) mg/dL Est GFR (CKD-EPI 2020) 14.77 (mL/min/1.73m2) Glucose 190 H (74-106) mg/dL Calcium 9.1 (8.5-10.1) mg/dL Magnesium 2.3 (1.8-2.4) mg/dL Total Bilirubin 0.30 (0.2-1.0) mg/dL AST 22 (15-37) U/L ALT 17 (14-59) U/L Alkaline Phosphatase 105 (46-116) U/L Creatine Kinase 195 H (26-192) U/L Troponin I 135 H* (<or=51) ng/L Total Protein 8.7 H (6.4-8.2) g/dL Albumin 3.0 L (3.4-5.0) g/dL Procalcitonin 1.31 ng/mL TSH 4.23 H (0.36-3.74) uIU/mL Free T4 0.70 L (0.76-1.46) ng/dL Urine Color (Yellow) Urine Clarity (Clear) Urine pH (5-8) Ur Specific [place]bert (1.005-1.025) Urine Protein (Neg-Trace) mg/dL Urine Ketones (Negative) mg/dL Urine Blood (Negative) Urine Nitrite (Negative) Urine Bilirubin (Negative) Urine Urobilinogen (Up to 0.2) mg/dL Ur Leukocyte Esterase (Negative) Urine RBC Urine WBC (0-5) HPF Ur Epithelial Cells Urine Crystals Urine Bacteria Urine Mucus Ur Culture Indicated? Urine Glucose (Negative) mg/dL COVID-19 Source Nasopharynx SARS-CoV-2 (PCR) Negative (Negative) Influenza Type A (PCR) Negative (Negative) Influenza Type B (PCR) Negative (Negative) RSV (PCR) Negative (Negative) 10/17/24 14:16 Urine Culture - Pending Urine - Reflex from Ua 10/17/24 12:52 Blood Culture - Pending Blood 10/17/24 11:11 Blood Culture - Pending Blood [id number] Documentation Fingerstick Glucose Start: 10/17/24 10:12 Freq: Status: Active Protocol: Activity Type Activity Date Activity User E-sign Co-sign Detail Recorded Client Recorded Date Recorded By Document 10/17/24 10:10 ANNA DAJAILENEON(3) [id number] 10/17/24 10:12 BKG DAEMON(4) Intake and Output - 24 Hour Total 10/17/24 09:56 thru 10/17/24 17:24 Intake Total 1100 Output Total 90 Balance 1010 Weight 47.491 kg Intake: IV 1100 Output: Urine 90 Other: Urine Color Straw Urine Appearance Cloudy Mucous Threads Falls Risk Assessment History of Falls No History 10/17/24 16:34 Contributing Factors Confusion,Unstable, 10/17/24 16:34 Impairments,Incontinence Ambulatory Aids Uses ambulatory device 10/17/24 16:34 Tubes/Lines W/no contributing factors 10/17/24 16:34 Gait Evaluation W/no contributing factors 10/17/24 16:34 Cognition Cognitive impairment 10/17/24 16:34 Fall Total Score 62 10/17/24 16:34 Level of Risk High Risk 10/17/24 16:34 Problems Discharge planning issues (Acute) Contraindication to deep vein thrombosis (DVT) prophylaxis (Acute) Atrial fibrillation (Chronic) Acute kidney injury superimposed on CKD (Acute) Severe sepsis (Acute) UTI (urinary tract infection) (Acute) v v v v v v v v v Sending and/or Receiving Nurses: Please use comment section below to note any information pertinent to the patient hand-off not included above. Information / Comments:Patient transferred to med/surg bed with no complications Report received from:GLEN Jansen in ED
[2024-10-17] MEDS: Apixaban 2.5 MG TAB PO (19:33)
[2024-10-17] MEDS: busPIRone 5 MG TAB PO (19:33)
[2024-10-17] MEDS: Normal Saline Flush 10 ML SYR IVP (19:35)
[2024-10-17] MEDS: Patch Removal 1 EACH TP (20:16)
[2024-10-18] VITALS (11 sets, daily range): BP systolic 93–132; BP diastolic 50–65; PULSE 64–85; RESP 17–23; TEMP 36.3–37.8; O2SAT 94–100
[2024-10-18] MEDS: Lactated Ringers 1,000 ML 80 ML IV (05:54)
[2024-10-18] MEDS: Acetaminophen 325 MG TAB 650 MG PO ×3 (06:09→20:12)
[2024-10-18 06:27] LABS: Abs Immature Grans 0.11 10^3/uL (0.0-0.06); Absolute Basophil Count 0.01 10^3/uL (0.0-0.2); Absolute Eosinophil Count 0.01 10^3/uL (0.0-0.7); Absolute Monocyte Count 0.71 10^3/uL (0.1-0.8); Absolute Neutrophil Count 11.22 10^3/uL (1.2-6.7); Basophils % 0.1 %; Eosinophils % 0.1 %; HCT 30.6 % (36.0-46.0); Immature Grans % 0.9 %; Lymphocytes % 2.7 %; MCH 30.9 pg (27.0-33.0); MCHC 32.7 % (32.0-36.0); MCV 94 fL (80-95); MPV 9.5 fL (8.0-11.0); Monocytes % 5.7 %; Neutrophils % 90.5 %; Platelet Count 311 10^3/uL (130-400); RBC 3.24 10^6/uL (3.93-5.22); RDW-SD 45.3 fL
[2024-10-18 06:31] LABS: Absolute Lymphocyte Count 0.33 10^3/uL (1.2-3.4)
[2024-10-18 07:16] LABS: Anion Gap 16.5 mmol/L (3-11); BUN 74 mg/dL (7-18); CO2 13.5 mmol/L (21.0-32.0); CREATININE 2.1 mg/dL (0.55-1.02); Calcium 8.1 mg/dL (8.5-10.1); Chloride 109 mmol/L (98-107); Estimated GFR 22.66 (mL/min/1.73m2); Glucose 151 mg/dL (74-106); Potassium 3.8 mmol/L (3.5-5.1); Sodium 139 mmol/L (136-145)
[2024-10-18] MEDS: Metoprolol CR 25 MG TABCR 12.5 MG PO (07:57)
[2024-10-18] MEDS: Apixaban 2.5 MG TAB PO ×2 (07:57→20:12)
[2024-10-18] MEDS: Sertraline 50 MG TAB PO (07:57)
[2024-10-18] MEDS: busPIRone 5 MG TAB PO ×2 (07:57→20:12)
[2024-10-18] MEDS: Cyanocobalamin 500 MCG TAB 1000 MCG PO (07:57)
[2024-10-18] MEDS: Lidocaine 5% Patch 1 PATCH TP (07:57)
[2024-10-18] MEDS: Normal Saline Flush 10 ML SYR IVP (07:58)
--- NOTE | 2024-10-18 09:56 | W.PM.PROGNOT ---
Date of Service Date of service: 10/18/24 Time of Service: 09:56 Assessment and Plan Assessment and plan (1) Severe sepsis: Status: Acute Assessment and plan: On admission, sepsis criteria met with WBC > 12, tachycardia 91-93 on arrival & probable urinary source Met severe sepsis d/t lactate > 2 and SBP 75 responding to fluid resuscitation; also has Cr >2 IVF bolus in ED Ongoing Tx for UTI (2) UTI (urinary tract infection): Assessment and plan: As per UA results on 10/17- Urine Cx still pending Continue Tx w ceftriaxone IV (3) Acute kidney injury superimposed on CKD: Status: Acute Assessment and plan: On admission Cr at 3 with previous one at 1.5 Continue IVF , no Hx of CHF Monitor urine output and oral fluid intake BMP in AM (4) Atrial fibrillation: Status: Chronic Assessment and plan: On metoprolol succinate 12.5 mg PO daily and eliquis at home Initially held Metoprolol succinate home dose resumed (5) Contraindication to deep vein thrombosis (DVT) prophylaxis: Status: Resolved Assessment and plan: Fully anticoagulated on apixaban for atrial fibrillation (6) Decrease in appetite: Status: Acute Assessment and plan: BMI 21, not eating meals despite requesting food Alb 3.0 (7) Discharge planning issues: Status: Resolved Assessment and plan: When medically cleared, patient to return to [facility] Discussed with Dr. Saravia Subjective Subjective Patient reports: no new complaints, tolerating liquids well, tolerating a regular diet, voiding w/o difficulty, flatus, bowel movement and diarrhea; denies blood in stool, nausea, vomiting or fever Exam Narrative Exam Narrative: Constitutional Comfortable without acute distress, pleasantly confused but stating her last name is Johanna HENMT: Facial structures with normal appearance , no change to small excoriation on tip of her nose Neuro:alert and oriented to self, No neurological focal deficit Resp: Unlabored breathing, clear lung bilaterally Cardio: regular rhythm, S1, S2, no murmur, positive pulses to all 4 extremities : Negative Costovertebral angle tenderness, no bladder distension Extremities: strength 5/5 to upper extremities; 3/5 to lower extremities Psych: RASS 0, congruent mood and normal affect. Objective Last Vital Signs Temp 37.8 C H 10/18/24 08:13 Pulse 80 10/18/24 08:13 Resp 23 10/18/24 08:13 BP 108/58 L 10/18/24 08:13 Pulse Ox 94 10/18/24 09:29 Laboratory Results - last 24 hr 10/17/24 10/17/24 10/17/24 11:11 11:15 11:25 WBC 12.27 H RBC 4.34 Hgb 13.4 Hct 41.7 MCV 96 H MCH 30.9 MCHC 32.1 RDW 13.1 Plt Count 418 H MPV 9.5 Immature Gran % 0.8 Neutrophils % 85.9 Lymphocytes % 5.4 Monocytes % 7.5 Eosinophils % 0.2 Basophils % 0.2 Nucleated RBC % 0.0 Absolute Neutrophils 10.54 H Absolute Lymphocytes 0.66 L Absolute Monocytes 0.92 H Absolute Eosinophils 0.02 Absolute Basophils 0.02 VBG Lactate 2.1 H Sodium 133 L Potassium 3.8 Chloride 101 Carbon Dioxide 14.6 L Anion Gap 17.4 H BUN 95 H* Creatinine 3.0 H Est GFR (CKD-EPI 2020) 14.77 Glucose 190 H Calcium 9.1 Magnesium 2.3 Total Bilirubin 0.30 AST 22 ALT 17 Alkaline Phosphatase 105 Creatine Kinase 195 H Troponin I 135 H* Total Protein 8.7 H Albumin 3.0 L Procalcitonin 1.31 TSH 4.23 H Free T4 0.70 L Urine Color Urine Clarity Urine pH Ur Specific [place] Urine Protein Urine Ketones Urine Blood Urine Nitrite Urine Bilirubin Urine Urobilinogen Ur Leukocyte Esterase Urine RBC Urine WBC Ur Epithelial Cells Urine Crystals Urine Bacteria Urine Mucus Ur Culture Indicated? Urine Glucose COVID-19 Source Nasopharynx SARS-CoV-2 (PCR) Negative Influenza Type A (PCR) Negative Influenza Type B (PCR) Negative RSV (PCR) Negative 10/17/24 10/17/24 10/17/24 12:24 14:16 14:25 WBC RBC Hgb Hct MCV MCH MCHC RDW Plt Count MPV Immature Gran % Neutrophils % Lymphocytes % Monocytes % Eosinophils % Basophils % Nucleated RBC % Absolute Neutrophils Absolute Lymphocytes Absolute Monocytes Absolute Eosinophils Absolute Basophils VBG Lactate 1.3 Sodium 136 Potassium 3.8 Chloride 103 Carbon Dioxide 17.2 L Anion Gap 15.8 H BUN 91 H* Creatinine 2.8 H Est GFR (CKD-EPI 2020) 16.05 Glucose 142 H Calcium 8.0 L Magnesium Total Bilirubin AST ALT Alkaline Phosphatase Creatine Kinase Troponin I 128 H* 120 H* Total Protein Albumin Procalcitonin TSH Free T4 Urine Color Yellow Urine Clarity Turbid Urine pH 5.5 Ur Specific [place] 1.025 Urine Protein >=300 H Urine Ketones Negative Urine Blood Large H Urine Nitrite Negative Urine Bilirubin Negative Urine Urobilinogen 0.2 Ur Leukocyte Esterase Large H Urine RBC Not Applicable Urine WBC >50 H Ur Epithelial Cells Not Applicable Urine Crystals Not Applicable Urine Bacteria Not Applicable Urine Mucus Not Applicable Ur Culture Indicated? Yes Urine Glucose Negative COVID-19 Source SARS-CoV-2 (PCR) Influenza Type A (PCR) Influenza Type B (PCR) RSV (PCR) 10/18/24 10/18/24 05:50 06:15 WBC 12.40 H RBC 3.24 L Hgb 10.0 L D Hct 30.6 L MCV 94 MCH 30.9 MCHC 32.7 RDW 13.0 Plt Count 311 MPV 9.5 Immature Gran % 0.9 Neutrophils % 90.5 Lymphocytes % 2.7 Monocytes % 5.7 Eosinophils % 0.1 Basophils % 0.1 Nucleated RBC % 0.0 Absolute Neutrophils 11.22 H Absolute Lymphocytes 0.33 L Absolute Monocytes 0.71 Absolute Eosinophils 0.01 Absolute Basophils 0.01 VBG Lactate Sodium 139 Potassium 3.8 Chloride 109 H Carbon Dioxide 13.5 L Anion Gap 16.5 H BUN 74 H Creatinine 2.1 H Est GFR (CKD-EPI 2020) 22.66 Glucose 151 H Calcium 8.1 L Magnesium Total Bilirubin AST ALT Alkaline Phosphatase Creatine Kinase Troponin I Total Protein Albumin Procalcitonin TSH Free T4 Urine Color Urine Clarity Urine pH Ur Specific [place] Urine Protein Urine Ketones Urine Blood Urine Nitrite Urine Bilirubin Urine Urobilinogen Ur Leukocyte Esterase Urine RBC Urine WBC Ur Epithelial Cells Urine Crystals Urine Bacteria Urine Mucus Ur Culture Indicated? Urine Glucose COVID-19 Source SARS-CoV-2 (PCR) Influenza Type A (PCR) Influenza Type B (PCR) RSV (PCR) Time Spent with Patient Time Spent with Patient: >50 minutes Time was spent: preparing to see the patient(eg.review tests), obtaining and/or reviewing separately otained hiistory, ordering medications,tests, procedures, referring, communicating with other health account executive healthcare, indepentently interpreting results, counseling the patient and care coordination
--- NOTE | 2024-10-18 11:16 | PHA.REVIEW2 ---
Pharmacy Admission Review Admission Clinical Review Admission Pharmacy Review: Discharge planning issues (Acute) Contraindication to deep vein thrombosis (DVT) prophylaxis (Acute) Acute kidney injury superimposed on CKD (Acute) Severe sepsis (Acute) UTI (urinary tract infection) (Acute) ampicillin Allergy (Unknown, Unverified 10/17/24 10:30) Unknown aspirin Allergy (Unknown, Unverified 10/17/24 10:30) Unknown codeine Allergy (Unknown, Unverified 10/17/24 10:30) Unknown hydrocodone Allergy (Unknown, Unverified 10/17/24 10:30) Unknown Penicillins Allergy (Unknown, Unverified 10/17/24 10:30) Unknown Sulfa (Sulfonamide Antibiotics) Allergy (Unknown, Unverified 10/17/24 10:30) Unknown Resuscitation Status DNR Height 4 ft 11 in Weight 47.491 kg Pharmacy Admission Review Renal Dosing Renal Dosing: BUN 74 mg/dL (7-18) H 10/18/24 05:50 Creatinine 2.1 mg/dL (0.55-1.02) H 10/18/24 05:50 Medications needing adjustments: Reviewed (CrCl 14.68 mL/min, BUN decreased from 91 and SCr decreased from 2.8) List of meds needing interventions: Current medications are okay Anticoagulation Anticoagulation: Hgb 10.0 g/dL (11.2-15.7) L D 10/18/24 06:15 Hct 30.6 % (36.0-46.0) L 10/18/24 06:15 Plt Count 311 10^3/uL (130-400) 10/18/24 06:15 Creatinine 2.1 mg/dL (0.55-1.02) H 10/18/24 05:50 DVT Prophylaxis: Reviewed (Hgb decreased from 13.4) Medications: Apixaban (2.5mg PO BID) Relevant Labs Relevant Labs: Sodium 139 mmol/L (136-145) 10/18/24 05:50 Potassium 3.8 mmol/L (3.5-5.1) 10/18/24 05:50 Chloride 109 mmol/L (98-107) H 10/18/24 05:50 Magnesium 2.3 mg/dL (1.8-2.4) 10/17/24 11:15 Electrolytes, C-Reactive P, ESR: Reviewed (glucose 151 at 0550) Cardiac Review Cardiac Review: Troponin I 120 ng/L (<or=51) H* 10/17/24 14:25 BP, HR, EF%: Reviewed (BP 108/58, HR WNL) List meds needing interventions: Has order for metoprolol XL 12.5mg daily QTc Review QTc: Reviewed (419 from 10/17/24) IV to PO Switch IV Medications: Reviewed (ceftriaxone) Home Meds Home Med List reviewed: Reviewed Current Meds Current Medication Order Review: Reviewed Pharmacy Antibiotic Review Relevant Labs: Relevant Labs 10/17/24 11:25 Procalcitonin 1.31 WBC 12.40 10^3/uL (4.4-10.8) H 10/18/24 06:15 Procalcitonin 1.31 ng/mL 10/17/24 11:25 Temperature 36.6 C Temperature 37.8 C Temperature 36.7 C Comments: Patient is on ceftriaxone, day 2, for sepsis/UTI. Lactobacillus was ordered today, patient had some loose stools this AM per nursing. WBC slightly increased from 12.27 and urine/blood cultures are pending.
--- NOTE | 2024-10-18 11:35 | PDOC.CMIN ---
Date of service: 10/18/24 Time of Service: 11:35 Care Management Initial Assmt Initial Assessment Reason for Hospitalization: Severe Sepsis, UTI Functional Status/Living Situation Patient Presentation: Suzette was awake and lying in bed when CM met with her. She is pleasantly confused and easily engages in conversation. Town of Residence: [facility] Resides with: Other (Health system) Significant Other/Family: Out of area (Pt reports that she has three sons and a daughter that live in [place].) Natural Supports: Brother Shannon Gregg Son: Joe (Jerome) Employment Status: Retired Instrumental Activities of Daily Living (ADLs): Requires support (Resides at Health system) Medications Medication Management: No Issues/Barriers identified Physical Functioning/Mobility Assistive Device: Unknown Advance Directives Advance Directives: Do you have an Advance Directive: AD On File at [facility]: N 07/09/22 16:16 Date Asked 10/17/24 10/17/24 10:58 AD Date Reviewed COLST On File at [facility] COLST Date Scanned Code Status Resuscitation Status DNR Portal Pt does not currently have a portal and education provided: Yes Insurance Coverage/Financial Issues Insurance: [employer] [facility] Medicaid Financial Issues: None identified Care Team Visit Care Team Role Provider Type August Neri Primary Care Provider MD [facility] STAFF PHYSICIAN Melvi Thacker RDN, [facility] Other Providers ACCOUNTING COORDINATOR Negar Louie Other Providers ACCOUNTING COORDINATOR Bartolo Ramirez RDN Other Providers ACCOUNTING COORDINATOR JOSE FRANCISCO [facility] Provider PHYSICIANS DESKTOP ARCHITECT Mati Pinzon MD Admit Provider [facility] STAFF PHYSICIAN Attending Provider Discharge Potential Discharge Needs: PCP F/U Appt Anticipated Barriers to Discharge: Medical Status Patient/Family Education Needs: Review discharge instructions, discuss Ask Me Three Transportation: Facility Transport Plan: Suzette will return to Health system when medically cleared for discharge. Facility van will provide transportation. Pt will follow up with facility/community providers and discharge plan of care as instructed. CM will follow. PFSH All Active Problems (Updated 10/18/24 @ 12:59 by Joy Bermudez APRN) Decrease in appetite (Acute) Discharge planning issues (Acute) Contraindication to deep vein thrombosis (DVT) prophylaxis (Acute) Atrial fibrillation (Chronic) Acute kidney injury superimposed on CKD (Acute) Severe sepsis (Acute) UTI (urinary tract infection) (Acute) Social History Smoking/Tobacco Use Status: Unknown Smoking risk assessment performed?: Yes Substance use type: unknown Housing: assisted living facility SDOH(Care Management) Screening Will the Patient Participate in the Screening?: Unable to obtain
[2024-10-18] MEDS: cefTRIAXone 1 GM/50 ML BAG IVPB (12:20)
--- NOTE | 2024-10-18 12:52 | NUR.NOTE ---
Nursing Note: Patient has been refusing cares since admission to medical surgical floor. Patient refused to be checked for urinating in her brief the entirety of the four hours of this nurse's shift on 10/17/2024. Patient allowed night nurses to change her brief and do a bed change as this nurse was told in report. During this nurses shift today on 10/18/2024, the patient has allowed this RN and PULP BLEACHER to change and reposition her multiple times. Patient had large watery stool at the beginning of the shift. PULP BLEACHER and nurse spent 30 minutes in the patient's room trying to convince her to get up for a meal and ambulate to the chair. Patient adamantly refused any type of ambulation or moving from the bed. This RN called Cuate, her son and POA, who spoke to her about getting up and eating. Cuate told staff that she normally ambulates and that him speaking to her typically works with her stubbornness and unwillingness to comply with care. She would not speak with him and was adamant about not moving. RN continued educating the patient about moving and getting out of bed. Patient has been requesting food multiples times an hour and this RN and multiple LNAs have ordered a variety of foods of her request. The patient then refuses to eat everything we have brought in. This RN and patient's PULP BLEACHER have tried to feed her many times for eat meal and trying different foods and drinks. Patient spits out food and choked on a noodle with the student nurse. This RN notified provider, Joy Bermudez, of issues regrading choking and intake as well as thoughts on a speech consult. Provider asked to try more custards and pudding. PULP BLEACHER went to patient's room to try to feed patient again. PULP BLEACHER got her to eat a few bites of pudding and ten bites of ice cream,nwith some anselmo dorie. Patient refused all other foods and drinks. RN continuing education but patient has no impaired memory and is very confused on situation.
--- NOTE | 2024-10-18 13:08 | W.NUTRFU ---
Date of service: 10/18/24 Time of Service: 11:00 Nutrition Note NOTE: Received nutrition consult for pt due to low PO intake with lower/normal BMI (21.1) Pt with 50% or less intake over her brief admission of 2 days (patient is discharging back to [facility] and rehab today) Provided boost ONS during her admission at meals. As Suzette has noted low po intake would recommend she be offered oral nutrition supplements as she accepts and encouragement/assistance at meals to result in better intake. The RDN at [facility] will review Suzette's nutrition plan after discharge as is policy after hospitalization, to make adjustments in supporting her intake. Time Spent in Nutritional Counseling and Treatment: 10 minutes
--- NOTE | 2024-10-18 14:08 | IN_ITS ---
PT Notes Visit Reasons: Severe sepsis,UTI,GABRIEL on CKD, Dehydration Physical Therapy Day Surgery Initial Evaluation Date: 10/18/2024 Referring Doctor: Joy Bermudez PT Orders: PT CONSULT: Evaluation for assistive device Precautions: droplet/Contact precautions until stool culture finalized. , fall risk, IV access left forearm Patient Profile/Admitting Diagnosis: Pt is an 84 yo female presented from SNF to ED after episode of unresponsiveness. In ED workup revealed severe sepsis with tachycardia, low SBP, increased WBC and abnormal creatinine. Pt treated with IV hydration and antibiotics. She also diagnosed with GABRIEL superimposed on CKD. 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 She has assistance for ADL care, toileting and functional mobility. Equipment Owned/DME: wheelchair and FWW at [facility] and rehab facility Subjective: Pt stating she is not getting out of bed because she walked the length of the hallway already. She unable to redirect. Pt stating she ate a full meal and drank ( despite full tray of food and drink at bedside) Objective: General Observation: frail cachetic female in semifowler position in bed Mental Status: alert oriented to self only, forgetful, repetitive speech, difficulty attending to task, short term memory deficits Pain: denies ROM: Right Upper Extremity: WFL Left Upper Extremity: WFL Right Lower Extremity: WNL except hip extension 5 degrees , hip abduction 5 degrees and DF to neutral Left Lower Extremity: WNL except hip extension 5 degrees, hip abduction 10 degrees and DF to neutral Strength: Right Upper Extremity: >3/5 Left Upper Extremity: >3/5 Right Lower Extremity: grossly 3-/5. Left Lower Extremity: grossly 3-/5 Sensation: intact BUE BLE Bed Mobility/Transfers: rolling: with rails min A Supine to sit NT d/t pt refusal Sit to stand NT d/t pt refusal Stand to sit NT d/t pt refusal Bed to chair NT d/t pt refusal Gait: NT d/t pt refusal Balance: Static Sitting:NT d/t pt refusal Dynamic Sitting: NT d/t pt refusal Static Standing: NT d/t pt refusal Dynamic Standing: unable to assess Special Tests: Mobility Limitations Standardized Measure [] [facility]: [] Raw Score: CMS Score: [] Informed Consent/Education: Patient instructed in purpose of PT consult. Assessment: Suzette presents with significant short term memory loss, difficulty attending to task. Pt declined to participate in any functional tasks out of bed or at edge of bed. Pt agreeable to assessment of ROM and strength as well as rolling only. Will attempt to assess functional mobility at next session depending pt level of cooperation. Significant time spent encouraging and attempting to facilitate pt to sit at EOB for further assessment. Patient presents with clinical signs and symptoms consistent with current /admitting diagnoses that have resulted in mobility limitations, gait instability, generalized weakness, and impairment of motor control as demonstrated by the following impairment level findings: 1. Decreased strength to BLE major muscle groups 2. Limitation of joint range of motion B ankle 3. potential impaired balance given strength deficits 4. impaired functional activity tolerance. Impairments are contributing to the following functional limitations: 1. Inability to safely ambulate without assistive device 2. Increase completion time for mobility ADL performance 3. Increased fall risk 4. Decline in transfer skills 5. Decline in bed mobility skills Patient is assessed as a moderate complexity based on the following: History: 84-year-old female with impairment level findings, functional limitations, and past medical history as indicated above Examination: Demonstrable impairment in strength, balance, and mobility level with underlying impairments and functional limitations as documented above Presentation: evolving Decision Making: moderate Goals: 1. supervision supine to from sit 2. CGA transfer bed to chair with FWW 3. CGA ambulating with FWW >50 feet 4. Pt will tolerate OOB to chair for >4 hours Plan of Care/Treatment Plan:Pt would benefit from skilled PT 1-2 times per day x 7 days per week for global strengthening, transfers, ambulation, pain management and balance facilitation DISCHARGE RECOMMENDATIONS:Return to SNF with continued PT to increase strength and functional abilities when medically appropriate for discharge. TREATMENT CODE/TIME: 32880 , 35450/ [id number] Thank you for the opportunity to participate in the care of this patient. Please sign an return this page within 30 days if you agree with the above POC. Thank you! Physician Signature Date [facility]
--- NOTE | 2024-10-18 14:32 | CHAPLAIN ---
[facility]. She was in bed when I visited this afternoon. She told me that she's from a family of 13 from [place], and she speaks [place]. She a crackers, pudding, ice cream and juice near her on the bedside table and asked me to identify what they all were. Later in the conversation, she pointed them all out. Suzette told me about her three sons and one daughter. Someone of them lives in [place], but I'm not sure which one. Suzette said she was cold, so I got her another warm blanket, then she said she was hungry and asked what time dinner was. I reminded her that her dinner would be three hours and that she has snacks on her tray. Suzette was very pleasant and easily engaged in a conversation.
--- NOTE | 2024-10-18 17:32 | W.SPSTE ---
Date of service: 10/18/24 Time of Service: 05:00 Subjective Clinical (Bedside) Swallow Evaluation Speech Language Pathology Referred by: Joy Bermudez Referral Type: Clinical Swallow Evaluation Reason for Referral/HPI: Suzette Altman is an 84 yo female with history dementia who was adm with sepsis/UTI. She was referred for PRESS BRAKE OPERATOR evaluation secondary to very limited PO intake and cough with noodle soup. PRESS BRAKE OPERATOR IMPRESSIONS & RECOMMENDATIONS: Clinical evaluation complete with nursing present. Patient pleasantly confused and agreeable to eating/expressing hunger. She self-fed approximately 1/4 of a chicken salad sandwich, 5-6 bits of diced peaches, and ~4 ounces of cranberry juice prior to saying she was done. Intermittent cough noted, suspect related to ? penetration of solids/sandwich. No indications for aspiration - no wet voice/change in vocal quality. Recommend modified diet to mitigate risks for aspiration and reduce deglutition demands/increase PO intake. If patient is unamendable to L5 minced/moist diet and this negatively impacts PO date, OK to upgrade to L6 soft & bite size. FURTHER PRESS BRAKE OPERATOR SERVICES: Patient to be followed while on unit. Diet Recommendations: Recommendations: ? SOLIDS: 5-Minced & Moist Solids LIQUIDS: 0-Thin Liquids MEDICATIONS: Whole with 0-Thin Liquids or puree (applesauce/pudding) RISK MANAGEMENT: HOB upright as tolerated; upright for all PO intake. Oral hygiene BID/2x per day Level of Assistance/Supervision: 1:1 supervision Strategies/Adaptations/Assistive Equipment: PO only when alert/awake Reduce auditory and/or visual distractions when eating Small sips and bites when eating, Slow rate of intake Posture/Positioning Needs: Maintain upright position at least 30 minutes after meals SUBJECTIVE: Patient received alert/awake, confused/repeating herself though oriented to self, family, and month, agreeable to evaluation Pain Reported? L arm IV- addressed by nsg Baseline Swallow Function: Patient denies swallowing difficulty prior to admission and eats a regular diet at baseline. PO Trials Assessed: IDDSI 0 Thin Liquids (cranberry juice via straw) IDDSI 6 Soft & Bite Size Solid (diced peaches) IDDSI 7EC Easy to Chew Solid (chicken salad sandwich_ Oral Mechanism Examination: Patient is edentulous. Unable to Complete formal OME due to confusion. No abnormalities appreciated Oral Phase Findings: Difficulty with bolus manipulation Difficulty with a-p transport Prolonged mashing No pocketing/oral residue Pharyngeal Phase Findings: Delayed swallow initiation Intermittent coughing with solids ASSESSMENT: Further PRESS BRAKE OPERATOR Services not indicated. Recommendation at Discharge: N/A Suggested Referrals: N/A Education Provided to: Nursing, Patient Topics Addressed: PRESS BRAKE OPERATOR recommendations PLAN: Evaluation only PRESS BRAKE OPERATOR CPT Code: 96056 Clinical Swallowing Evaluation TOTAL TIME: 30 Minutes 500-530 PM
--- NOTE | 2024-10-18 19:29 | NUR.NOTE ---
Nursing Note: Patient refused to be turned or to get out of bed multiple times throughout this RN shift. AREA DIRECTOR and RN changed patient, applied mepilex to sacrum, and have used barrier creams. Patient has been turned and boosted when patient allowed. PT tried to get patient out of bed as well with no results. Patient got verbally aggressive with RN, PT, and AREA DIRECTOR multiple times but was easily redirected. This RN educated patient on moving and turning and will continue to do so.
[2024-10-18 20:05] LABS: Campylobacter PCR Negative (Negative); Salmonella PCR Negative (Negative); Shiga Toxin PCR Negative (Negative); Shigella/Enteroinvasive Ecoli Negative (Negative)
[2024-10-18] MEDS: Patch Removal LIDOCAINE 1 EACH TP (20:29)
[2024-10-19 00:27] VITALS: BP 106/61; PULSE 78; RESP 18; TEMP 36.1; O2SAT 98
[2024-10-19 03:28] VITALS: BP 100/76; PULSE 70; RESP 16; TEMP 37; O2SAT 96
[2024-10-19 06:44] LABS: Abs Immature Grans 0.06 10^3/uL (0.0-0.06); Absolute Basophil Count 0.01 10^3/uL (0.0-0.2); Absolute Eosinophil Count 0.17 10^3/uL (0.0-0.7); Absolute Lymphocyte Count 0.57 10^3/uL (1.2-3.4); Absolute Neutrophil Count 8.06 10^3/uL (1.2-6.7); Basophils % 0.1 %; Eosinophils % 1.8 %; HCT 27.8 % (36.0-46.0); HGB 9.3 g/dL (11.2-15.7); Immature Grans % 0.6 %; Lymphocytes % 6.1 %; MCH 30.9 pg (27.0-33.0); MCHC 33.5 % (32.0-36.0); MCV 92 fL (80-95); MPV 9.6 fL (8.0-11.0); Monocytes % 5.3 %; Neutrophils % 86.1 %; Platelet Count 314 10^3/uL (130-400); RBC 3.01 10^6/uL (3.93-5.22); RDW 13.4 % (11.7-14.6); RDW-SD 44.9 fL; WBC 9.37 10^3/uL (4.4-10.8)
[2024-10-19 07:17] LABS: Anion Gap 11.9 mmol/L (3-11); BUN 47 mg/dL (7-18); CO2 18.1 mmol/L (21.0-32.0); CREATININE 1.4 mg/dL (0.55-1.02); Calcium 8.4 mg/dL (8.5-10.1); Chloride 109 mmol/L (98-107); Estimated GFR 36.87 (mL/min/1.73m2); Glucose 95 mg/dL (74-106); Potassium 3.2 mmol/L (3.5-5.1); Sodium 139 mmol/L (136-145)
[2024-10-19 08:24] VITALS: BP 129/60; PULSE 88; RESP 18; TEMP 37.3; O2SAT 100
[2024-10-19] MEDS: Cyanocobalamin 500 MCG TAB 1000 MCG PO (08:25)
[2024-10-19] MEDS: Sertraline 50 MG TAB PO (08:25)
[2024-10-19] MEDS: Apixaban 2.5 MG TAB PO (08:25)
[2024-10-19] MEDS: Metoprolol CR 25 MG TABCR 12.5 MG PO (08:25)
[2024-10-19] MEDS: busPIRone 5 MG TAB PO (08:25)
[2024-10-19] MEDS: Lidocaine 5% Patch 1 PATCH TP (08:26)
[2024-10-19] MEDS: Normal Saline Flush 10 ML SYR IVP (08:26)
--- NOTE | 2024-10-19 10:08 | PT.INTREAT ---
PT Notes Visit Reasons: Severe sepsis,UTI,GABRIEL on CKD, Dehydration Inpatient Physical Therapy Treatment Note [facility] Date: 10/19/2024 PRECAUTIONS:Contact/droplet precautions until stool specimen to rule out c-diff SUBJECTIVE: Do you have my glasses? ( pt did not present to ED with glasses from SNF) OBJECTIVE:Pt presented seated in chair with BLE elevated. She remains Oriented to self only repetitive statements? PAIN: denies Therapeutic Activities (64825c[]): Direct one-on-one instruction in dynamic activities to improve functional performance. Provided skilled cues and instruction on performance and technique throughout. ? BED MOBILITY/TRANSFERS? Rolling L/R: independent Supine-sit: Supervision when motivated to perform ? Sit-supine: supervision ? Sit-stand: CGA with cues for safe hand placement ? Stand-sit: CGA and cues for safe hand placement ? Chair-bed: CGA with FWW Ambulation: Facilitated safe and correct performance of level surface ambulation covering a distance of 30 feet using use front wheeled walker with contact-guard assist and chair follow for safety. Did not report of any increased pain. Denied headache, chest pain, and lightheadedness throughout activity. Minimal verbal cueing provided for AD management, directional changes, and posture. Pt scored 16 on Raw Score of the [facility] AM-PAC 6 Click Basic Mobility Inpatient Short Form indicating 54.16% deficit and need for assistance . ASSESSMENT:? Pt can be difficult to engage in skilled PT except for purposeful/ meaningful tasks for her. Pt able to stand and ambulate with FWW with CGA this session. Pt limited by level of cooperation/ motivation to perform purposeful tasks. Pt wanted to return to bed so agreeable to stand and participate in self care tasks prior to returning to bed. Pt also limited by significant cognitive imairment / short term memory loss. Pt requires frequent redirection as she is easily distracted and forgetful. PLAN: Pt would benefit from skilled PT 1-2 times per day for global strengthening, transfers, ambulation, pain management and balance facilitation until medically appropriate for discharge TREATMENT CODE/TIME:84156/[id number] DISCHARGE RECOMMENDATION: Continued PT at SNF
--- NOTE | 2024-10-19 10:58 | W.PM.DS.N ---
Date of service: 10/19/24 Time of Service: 10:58 DS: Diagnosis Discharge Diagnosis (1) Severe sepsis: Status: Acute (2) UTI (urinary tract infection): Status: Acute (3) Acute kidney injury superimposed on CKD: Status: Acute (4) Atrial fibrillation: Status: Chronic (5) Decrease in appetite: Status: Acute Discharge Plan Disposition Patient Disposition: Residential Facility(SNF) Condition: Serious Condition: Improving Discharge Details Reason For Visit: Severe sepsis,UTI,GABRIEL on CKD, Dehydration Admit Date/Time: 10/17/24 15:17 Admit Provider: Mati Pinzon Attending Provider: Mati Pinzon Primary Care Provider: August Neri Hospital Course Hospital Course: This is an 84-year-old female patient who resides at [facility] and rehab presented here to the emergency department with severe sepsis source urinary tract infection. She was placed on ceftriaxone and admitted to hospitalist services. Her urine culture grew pansensitive E. coli. Blood cultures have been negative to date. Hemodynamically she has stabilized and normalized. She is eating and drinking bowels and bladder functioning she is feeling much improved and is thought to be at her baseline. She will be discharged back to [facility] and reh on cephalexin 500 mg 3 times daily for 3 more days to complete a 5-day course. She should resume the rest of her medications as previously scheduled. Of note labs included troponin which remained flat at 135 with no acute ischemic EKG changes and no chest pain. Potassium noted to be low at 3.2 she was given 40 mEq p.o. and should be followed outpatient. Also on admission dehydrated with an acute kidney injury with creatinine 3.0 this did normalize back to her baseline prior to discharge and was 1.4 on day of discharge. This should be followed outpatient also. Discharge discussed with Dr. Saravia Girard Meds and New Rx's Prescriptions: New cephalexin 500 mg capsule 500 mg PO TID Qty: 10 0RF Continued Eliquis 2.5 mg tablet 2.5 mg PO BID lorazepam 0.5 mg tablet 0.5 mg PO HS PRN metoprolol succinate 25 mg tablet extended release 24 hr 12.5 mg PO DAILY sertraline 50 mg tablet 50 mg PO DAILY buspirone 5 mg tablet 5 mg PO BID acetaminophen 325 mg capsule 650 mg PO Q8H PRN cyanocobalamin (vitamin B-12) 1,000 mcg capsule 1,000 mcg PO DAILY docusate sodium 100 mg capsule 100 mg PO BID PRN bisacodyl [Dulcolax (bisacodyl)] 10 mg suppository 10 mg RI DAILY PRN Enema 19-7 gram/118 mL enema 118 ml RI DAILY PRN lidocaine 5 % adhesive patch,medicated 1 patch topical DAILY Rx Instructions: leave on most painful area for up to 12 hrs magnesium hydroxide [Milk of Magnesia] 400 mg/5 mL suspension 30 ml PO QHS PRN polyethylene glycol 3350 [Miralax] 17 gram/dose powder 17 g PO DAILY PRN albuterol sulfate [Ventolin HFA] 90 mcg/actuation HFA aerosol inhaler 2 inh inhalation Q4H PRN diclofenac sodium [Voltaren Arthritis Pain] 1 % gel 2 g topical BID PRN Rx Instructions: apply to posterior neck Discharge Instructions Instructions: Urinary Tract Infection, Adult ED Additional Instructions: complete course of antibiotics as directed. your urine grew pansensitive ecoli responsive to the antibiotic you are on. drink at least 6-8 glasses of water to stay well hydrated. Referrals: Saida Costello, PET TRAINER [SPEECH LANGUAGE PATHOLOGIST] - Activity:: Activity as Tolerated Equipment/Supplies:: No Equipment Needed Diet:: As Tolerated Discharge Orders Discharge Orders: Discharge Order (Routine); Ordered 10/19/24 Ordered By: Lilian Don DS: Summary Time Spent with Patient providing and/or coordinating discharge services: Less than 30 minutes Status at Discharge Functional status at discharge: uses cane/walker Overall status at discharge: patient is progressing back to baseline Mental Status: mental status grossly normal Speech and Movement: speech and movement normal Mood: congruent mood Affect: normal affect Quality:SDOH Health Related Social Needs: No Data to Display Exam Narrative Exam Narrative: Thin elderly female of stated age no acute distress she is awake alert oriented to person only head is atraumatic eyes nonicteric noninjected responding appropriately. Skin is pink warm dry well-perfused respirations even and unlabored cardiovascular regular rate and rhythm abdomen soft nontender. No peripheral edema moves all extremities psychiatric appropriate no behavioral disturbances Psych Mental Status: mental status grossly normal Speech and Movement: speech and movement normal Mood: congruent mood Affect: normal affect DS: Data Vitals/I&O Vitals and I&O: Vital Signs Temperature 37.3 C 12/06/24 08:24 Temperature Source Temporal Artery Scan 12/06/24 08:24 Pulse 88 10/19/24 08:24 Pulse Rhythm Regular 10/17/24 16:34 Pulse 69 10/17/24 16:01 Respiratory Rate 18 10/19/24 08:24 Respiratory Effort Normal 10/17/24 16:34 Respiratory Depth Normal 10/17/24 16:34 Respiratory Pattern Normal 10/17/24 10:14 Blood Pressure 129/60 10/19/24 08:24 Blood Pressure Mean 76 10/17/24 16:01 Pulse Oximetry 100 10/19/24 08:24 Oxygen Delivery Method Room Air 10/19/24 08:24 Oxygen Flow Rate 0 10/19/24 08:24 Pain Level 0 10/19/24 00:27 Intake & Output 10/18/24 10/18/24 10/19/24 11:59 23:59 11:59 Intake Total 1000 / 1850 850 / 1850 Output Total 0 / 0 Balance 1000 / 1850 850 / 1850 Intake: IV 1000 / 1850 850 / 1850 Oral 0 / 0 Output: Urine 0 / 0 Other: Urine Color Yellow Yellow Urine Appearance Clear Urine Odor Normal Normal Normal Comment checked brief and she was dry Stool Size Moderate Moderate Stool Characteristics Liquid Liquid Brown Data Completed and Pending Labs on day of discharge: Labs from last 24 hours 10/19/24 10/18/24 05:56 07:34 WBC 9.37 RBC 3.01 L Hgb 9.3 L Hct 27.8 L MCV 92 MCH 30.9 MCHC 33.5 RDW 13.4 Plt Count 314 MPV 9.6 Immature Gran % 0.6 Neutrophils % 86.1 Lymphocytes % 6.1 Monocytes % 5.3 Eosinophils % 1.8 Basophils % 0.1 Nucleated RBC % 0.0 Absolute Neutrophils 8.06 H Absolute Lymphocytes 0.57 L Absolute Monocytes 0.50 Absolute Eosinophils 0.17 Absolute Basophils 0.01 Sodium 139 Potassium 3.2 L Chloride 109 H Carbon Dioxide 18.1 L Anion Gap 11.9 H BUN 47 H Creatinine 1.4 H Est GFR (CKD-EPI 2020) 36.87 Glucose 95 Calcium 8.4 L Stool Campylobacter PCR Negative Stool Salmonella PCR Negative Stool Shigella PCR Negative Shiga Toxin (PCR) Negative Preliminary micro results at discharge 10/17/24 12:52 Blood Culture - Preliminary Blood NO GROWTH 24 HOURS 10/17/24 11:11 Blood Culture - Preliminary Blood NO GROWTH 24 HOURS PFSH All Active Problems (Updated 10/18/24 @ 12:59 by Joy Bermudez APRN) Decrease in appetite (Acute) Discharge planning issues (Acute) Contraindication to deep vein thrombosis (DVT) prophylaxis (Acute) Atrial fibrillation (Chronic) Acute kidney injury superimposed on CKD (Acute) Severe sepsis (Acute) UTI (urinary tract infection) (Acute) Social History Smoking/Tobacco Use Status: Unknown Smoking risk assessment performed?: Yes Substance use type: unknown Housing: assisted living facility Time Spent with Patient Time Spent with Patient: <45 minutes Time was spent: preparing to see the patient(eg.review tests), obtaining and/or reviewing separately otained hiistory, ordering medications,tests, procedures, indepentently interpreting results and counseling the patient
[2024-10-19 11:11] VITALS: BP 120/58; PULSE 89; RESP 16; TEMP 37.3; O2SAT 99
[2024-10-19] MEDS: Potassium Chloride 20 MEQ TABCR 40 MEQ PO (11:23)
--- NOTE | 2024-10-19 11:32 | PDOC.CMDIS ---
Date of service: 10/19/24 Time of Service: 11:32 LACE Index Scoring Tool Questions: Length of Stay (in days): 2 Was the patient admitted via the E.D.?: Yes E.D. Visits: 1 Answers: Total Score: 6 Risk of Readmission: Low Risk Care Management Discharge Plan Reason for Hospitalization: Severe sepsis, UTI, GABRIEL Discharge Plan: Discharge back to [facility] via w/c van. Follow up with facility/community providers and the discharge plan of care as recommended. Patient/Family Education Needs: Review discharge instructions, limitations and plan to follow up with facility providers. Discuss ask me three. Services Needed at Discharge: [facility] Facility ([facility]) SDOH Health Related Social Needs: No Data to Display
--- NOTE | 2024-10-19 13:53 | NUR.NOTE ---
Nursing Note: Report given to [facility] re[facility] at 1350 on 10/19/2024. Patient arrived safely and vitals stable.
== END 2024-10-19 13:33 | disposition skilled nursing facility (03) ==
LOC: ER 15:30 → MS 16:29
PROVIDERS: Family Medicine; Nurse Practitioner Acute Care; Admitting Provider Hospitalist; Emergency Provider Physician Assistant; PCP Family Medicine; Visit Provider Hospitalist
DX: A41.9 Sepsis, unspecified organism (principal); R65.20 Severe sepsis without septic shock; N39.0 Urinary tract infection, site not specified; N17.9 Acute kidney failure, unspecified; I48.0 Paroxysmal atrial fibrillation; N18.9 Chronic kidney disease, unspecified; R63.0 Anorexia; Z68.21 Body mass index [BMI] 21.0-21.9, adult; I25.10 Atherosclerotic heart disease of native coronary artery without angina pectoris; F03.90 Unspecified dementia, unspecified severity, without behavioral disturbance, psychotic disturbance, mood disturbance, and anxiety; Z79.01 Long term (current) use of anticoagulants; Z79.899 Other long term (current) drug therapy; D75.839 Thrombocytosis, unspecified; E86.0 Dehydration
CPT/HCPCS: 00123; 36415; 36416; 51798; 80048; 80053; 82550; 82962; 84145; 87040; 87077; 87505; 87637; 92610; 93005; 96361; 96365; 96366; 96367; 97162; 97530; 99291; 70450; 71046; 81003; 81015; 83605; 83735; 84439; 84443; 84484; 85025; 87086; 87186; 93010; 99223; 99233; 99239; G0378; J0131; J0696; J3490

== ENCOUNTER 2024-10-25 15:37 | Outpatient (REF) | payer OTHER, MEDICAID, SELFPAY ==
[2024-10-25 16:01] LABS: HCT 32.1 % (36.0-46.0); HGB 10.3 g/dL (11.2-15.7); MCHC 32.1 % (32.0-36.0); MCV 97 fL (80-95); Platelet Count 363 10^3/uL (130-400); RBC 3.32 10^6/uL (3.93-5.22); RDW 13.8 % (11.7-14.6); WBC 7.95 10^3/uL (4.4-10.8)
== END 2024-10-25 15:38 | disposition home or self-care (01) ==
LOC: LBN 15:37
PROVIDERS: PCP Family Medicine; Visit Provider Family Medicine
DX: R68.89 Other general symptoms and signs (principal)
CPT/HCPCS: 80048; 85027; 83735

== ENCOUNTER 2024-10-29 18:38 | Outpatient (REF) | payer OTHER, MEDICAID, SELFPAY ==
[2024-10-29 17:13] LABS: Anion Gap 8.7 mmol/L (3-11); BUN 31 mg/dL (7-18); CO2 24.3 mmol/L (21.0-32.0); CREATININE 1.4 mg/dL (0.55-1.02); Calcium 8.4 mg/dL (8.5-10.1); Chloride 108 mmol/L (98-107); Estimated GFR 36.87 (mL/min/1.73m2); Glucose 119 mg/dL (74-106); Potassium 4.5 mmol/L (3.5-5.1); Sodium 141 mmol/L (136-145)
== END 2024-10-29 18:39 | disposition home or self-care (01) ==
LOC: LBN 18:38
PROVIDERS: PCP Family Medicine; Visit Provider Family Medicine
DX: N17.9 Acute kidney failure, unspecified (principal)
CPT/HCPCS: 80048; 83735; 85025

== ENCOUNTER 2024-11-28 14:59 | Outpatient (REF) | payer MEDICAID, SELFPAY ==
[2024-11-28 15:22] LABS: HCT 30.5 % (36.0-46.0); HGB 9.5 g/dL (11.2-15.7)
[2024-11-28 15:41] LABS: ALT 9 U/L (14-59); AST 14 U/L (15-37); Albumin 3.5 g/dL (3.4-5.0); Alkaline Phosphatase 91 U/L (46-116); Anion Gap 9.6 mmol/L (3-11); BUN 28 mg/dL (7-18); Bilirubin, Total 0.34 mg/dL (0.2-1.0); CO2 24.4 mmol/L (21.0-32.0); CREATININE 1.3 mg/dL (0.55-1.02); Calcium 8.7 mg/dL (8.5-10.1); Chloride 111 mmol/L (98-107); Glucose 151 mg/dL (74-106); Potassium 3.8 mmol/L (3.5-5.1); Sodium 145 mmol/L (136-145); Total Protein 7.1 g/dL (6.4-8.2)
== END 2024-11-28 15:00 | disposition home or self-care (01) ==
LOC: LBN 14:59
PROVIDERS: PCP Family Medicine; Visit Provider Family Medicine Geriatric Medicine
DX: E87.6 Hypokalemia (principal)
CPT/HCPCS: 80053; 85014; 85018